=== PATIENT | female | born 1965 | race Caucasian/White ===

== ENCOUNTER 2024-11-01 12:06 | Inpatient (IN) | payer MEDICAID ==
[~2024-11-01] VITALS: Ht 165.1 cm; Wt 139.1 kg
[~2024-11-01 12:06] MED LIST: ALBU108A5 IN; AMLO1TAB23 PO; ASPI-394 PO; ATOR20TA PO; Atorvastatin Calcium PO; FENO134C16 PO; GEMF-66 PO; HYDR1CAP27 PO; IBUP-1456 PO; LEVO200T7 PO; LIDO1PAD55 EX; LOSA-533 PO; METH40TA2 PO; MUPI2CRE17 EX; SUMA100T15 PO; TRI05TP TOP
--- NOTE | 2024-11-01 12:17 | ECG ---
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
--- NOTE | 2024-11-01 12:20 | ED.PDOC ---
HPI Comments 59 y.o female presents to the ED via EMS for a chief complaint of hemoptysis x 2 days ago associated with chest pain, SOB, and chills x 1 day. Patient describes chest pain as sharp, radiates to her shoulder blades and back, and states there are no modifying factors. Patient denies any recent illness, contact illness exposure, nausea, vomiting, diarrhea, fever. Patient is currently being seen for a parasitic rash by infectious disease doctor localized to her left hand that r adiates to throughout her body. Patient has a PMH of HTN, HDL, DM, thyroid cancer, CAD, COPD, CHF, Angiogram. She reports the use of tobacco. Time Seen by MD: 17:05 Primary Care Provider: MIKE Reviewed Notes: Nurses Notes, Cattle Sorter Notes, Medications, Allergies Allergies: Coded Allergies: Shellfish Allergy (Verified Allergy, Mild, 05/24/15) Penicillins (Verified Allergy, Unknown, 05/23/15) Home Meds Active Scripts Atorvastatin Calcium (Lipitor) 20 Mg Tab, 1 TAB PO QHSP, #30 TAB 1 Refill Prov:MACIE SCHAEFER MD 05/26/15 Amlodipine Besylate (Amlodipine Besylate) 10 Mg Tab, 1 TAB PO DAILY, #30 TAB 5 Refills Prov:MACIE SCHAEFER MD 05/26/15 [Atorvastatin Calcium] 20 MG TB No Conflict Check, 20 MG PO HS, #30 TAB Prov:MACIE SCHAEFER MD 05/26/15 Aspirin (Aspir-Low Ec) 81 Mg Tb, 81 MG PO DAILY, #30 TAB Prov:MACIE SCHAEFER MD 05/26/15 Reported Medications Methadone Hcl (Methadose) 40 Mg Tab, 57 MG PO DAILY, TAB 05/23/15 Gemfibrozil (Gemfibrozil) 600 Mg Tab, 600 MG PO DAILY, TAB 05/23/15 Levothyroxine Sodium (Levothyroxine Sodium) 200 Mcg Tab, PO DAILY 12/27/12 Information Source: Patient, Emergency Med Personnel Mode of Arrival: EMS Severity: Moderate Timing: Days Duration: Since onset Location: Substernal Radiation: Shoulder (R), Shoulder (L) Onset: At Rest Cardiac Risk Factors: Smoker, Family History, Hyperlipidemia, HTN, Diabetes PE Risk Factors: None History of: Similar pain in past Modifying Factors: Nothing Associated Signs and Symptoms: SOB Past Medical History PAST MEDICAL HISTORY: Angina, CAD, Cancer, CHF, COPD, High Lipids, HTN, [place] Surgical History: Thyroidectomy, Tonsillectomy Surgical History (Other): retinal, bilateral knee replacement, angiogram Family History Family History: No family hx of Cancer, No family hx of DM, No family hx of Heart pranav Social History Smoker: Cigarettes Alcohol: Denies ETOH Use Drugs: Denies Drug Use Lives In: Home Constitutional: denies: chills, diaphoresis, fatigue, fever, malaise, sweats, weakness, others EENTM: denies: blurred vision, double vision, ear bleeding, ear discharge, ear drainage, ear pain, ear ringing, eye pain, eye redness, hearing loss, mouth pain, mouth swelling, nasal discharge, nose bleeding, nose congestion, nose pain, photophobia, tearing, throat pain, throat swelling, voice changes, others Respiratory: reports: hemoptysis, SOB at rest, shortness of breath, SOB with excertion; denies: cough, orthopnea, stridor, wheezing, others Cardiovascular: reports: chest pain; denies: dizzy spells, diaphoresis, Dyspnea on exertion, edema, irregular heart beat, left arm pain, lightheadedness, palpitations, PND, syncope, others Gastrointestinal: denies: abdomen distended, abdominal pain, blood streaked bowels, constipated, diarrhea, dysphagia, difficulty swallowing, hematemesis, melena, nausea, poor appetite, poor fluid intake, rectal bleeding, rectal pain, vomiting, others Genitourinary: denies: abnormal vagina bleeding, burning, dyspareunia, dysuria, flank pain, frequency, hematuria, incontinence, pain, , vagina discharge, urgency, others Neurological: denies: dizziness, fainting, headache, left sided numbness, left sided weakness, numbness, paresthesia, pre-existing deficit, right sided numbness, right sided weakness, seizure, speech problems, tingling, tremors, weakness, others Musculoskeletal: reports: back pain, others (shoulder blade pain bilaterally ); denies: gout, joint pain, joint swelling, muscle pain, muscle stiffness, neck pain Integumetry: denies: bruises, change in color, change in hair/nails, dryness, laceration, lesions, lumps, rash, wounds, others Allergic/Immunocompromised: denies: Difficulty Healing, Frequent Infections, Hives, Itching, others Hematologic/Lymphatic: denies: anemia, blood clots, easy bleeding, easy bruising, swollen glands, others Endocrine: denies: excessive hunger, excessive sweating, excessive thirst, excessive urination, flushing, intolerance to cold, intolerance to heat, unexplained weight gain, unexplained weight loss, others Psychiatric: denies: anxiety, bipolar disorder, depression, hopeless, panic disorder, schizophrenia, sleepless, suicidal, others All Other Systems: Reviewed and Negative Physical Exam General Appearance: Moderate Distress HEENT: Normal ENT Inspection, Pharynx Normal, TMs Normal Neck: Full Range of Motion, Non-Tender, Normal, Normal Inspection Respiratory: Chest Non-Tender, Lungs Clear, No Accessory Muscle Use, No Respiratory Distress, Normal Breath Sounds Cardiovascular: No Edema, No JVD, No Murmur, No Gallop, Normal Peripheral Pulses, Regular Rate/Rhythm Breast Exam: Deferred Gastrointestinal: No Organomegaly, Non Tender, No Pulsatile Mass, Normal Bowel Sounds, Soft Genitalia: Deferred Pelvic: Deferred Rectal: Deferred Extremities: No calf tenderness, Normal capillary refill, Normal inspection, Normal range of motion, Non-tender, No pedal edema Musculoskeletal : Apperance: Normal Neurologic: Alert, pack train driver II-XII nml as Tested, No Motor Deficits, Normal Affect, Normal Mood, No Sensory Deficits Cerebellar Function: Normal Reflexes: Normal Skin: Dry, Normal Color, Warm Lymphatic: No Adenopathy EKG EKG : Pulse Rate (adult): 71 Cardiac Rhythm: NSR Hypertrophy: LAE Was a procedure done? Was a procedure done?: No CP Differential Dx Differential Diagnosis: Anxiety / Panic Attack, Digoxin Toxicity Differential Diagnosis: Angina, Chest Wall Pain, Cholelithiasis, Costochondritis, Esophageal reflux/spasm, Gastritis, Myocardial Infarction, Pericarditis, Pneumonia, Pneumothorax, Pulmonary Embolus X-Ray, Labs, Meds, VS Vital Signs Date Time Temp Pulse Resp B/P (MAP) Pulse Ox O2 Delivery O2 Flow Rate FiO2 11/01/24 16:54 98.3 80 24 183/92 (122) 90 98.3 11/01/24 16:51 183/92 11/01/24 16:47 98.3 80 18 183/92 (122) 90 98.3 11/01/24 15:34 Room Air* 0 21 11/01/24 12:56 69 11/01/24 12:21 71 11/01/24 12:13 71 11/01/24 12:10 98.8 85 16 184/83 (116) 96 Lab Test 11/01/24 14:06 11/01/24 12:54 Range/Units Troponin I High Sensitivity 6 6 </=34 ng/L White Blood Count 14.4 H 4.4-10.8 10^3/uL Red Blood Count 4.60 4.0-5.20 10^6/uL Hemoglobin 14.2 12.2-16.2 g/dL Hematocrit 41.6 36.0-46.0 % Mean Corpuscular Volume 90.4 80.0-100.0 fL Mean Corpuscular Hemoglobin 30.8 28.0-32.0 pg Mean Corpuscular Hemoglobin Concent 34.1 32.0-36.0 g/dL Red Cell Distribution Width 15.7 H 11.8-14.3 % Platelet Count 225 140-450 10^3/uL Mean Platelet Volume 9.2 6.9-10.8 fL Neutrophils (%) (Auto) 87.8 H 37.0-80.0 % Lymphocytes (%) (Auto) 7.2 L 10.0-50.0 % Monocytes (%) (Auto) 4.1 0.0-12.0 % Eosinophils (%) (Auto) 0.6 0.0-7.0 % Basophils (%) (Auto) 0.3 0.0-2.0 % Neutrophils # (Auto) 12.6 H 1.6-8.6 10 ^3/uL Lymphocytes # (Auto) 1.0 0.4-5.4 10 ^3/uL Monocytes # (Auto) 0.6 0-1.3 10 ^3/uL Eosinophils # (Auto) 0.1 0-0.8 10 ^3/uL Basophils # (Auto) 0 0-0.2 10 ^3/uL Nucleated Red Blood Cells 0.2 % Sodium Level 138 136-145 mmol/L Potassium Level 3.4 L 3.5-5.1 mmol/L Chloride Level 99 98-107 mmol/L Carbon Dioxide Level 31 20-31 mmol/L Anion Gap 8 5-15 Blood Urea Nitrogen 11 9-23 mg/dL Creatinine 0.74 0.550-1.02 mg/dL Glomerular Filtration Rate Calc 93 >90 mL/min BUN/Creatinine Ratio 14.9 10.0-20.0 Serum Glucose 193 H 74-106 mg/dL Hemoglobin A1c 6.6 H <5.7 % A1C Calcium Level 9.6 8.7-10.4 mg/dL Total Bilirubin 0.4 0.2-1.0 mg/dL Aspartate Amino Transferase (AST) 21 13-40 U/L Alanine Aminotransferase (ALT) 16 7-40 U/L Alkaline Phosphatase 82 46-116 U/L Total Protein 7.0 5.7-8.2 g/dL Albumin 4.1 3.2-4.8 g/dL Thyroid Stimulating Hormone (TSH) 18.24 H 0.55-4.78 uIU/mL Current Medications Medications (Trade) Dose Ordered Sig/Heriberto Route Start Time Stop Time Status Last Admin Aspirin 162 mg ONCE ONCE PO 11/01/24 12:15 11/01/24 12:16 DC 11/01/24 16:39 Sodium Chloride 1,000 ml @ 500 mls/hr Q2H ONCE IVB 11/01/24 12:15 11/01/24 14:14 DC 11/01/24 15:57 Hydralazine HCl (Apresoline Injection) 10 mg Q6HP PRN IV 11/01/24 16:30 11/01/24 16:51 Diagnostic Test (Pha) (Accu-Chek Comfort Curve T) 1 strip ACHS 11/01/24 17:00 11/01/24 17:43 Insulin Human Regular (InsuLIN R) ACHS SC 11/01/24 17:00 11/01/24 17:45 Ondansetron HCl (Zofran) 4 mg Q4HP PRN IV 11/01/24 16:30 11/01/24 17:34 CHEST RADIOGRAPH IMPRESSION: 1. Right upper lung zone consolidation. Diffuse bilateral interstitial opacities. The patient was given hydralazine 10 mg IV push for the elevated blood pressure. The patient was also given aspirin 162 mg by mouth The patient's CBC shows an elevated white blood cell count of 14.4 The rest of the CBC is within normal limits The chemistry panel is within normal limits. The TSH is significantly elevated The troponin level x2 is negative The patient was being admitted at this time. The patient has had some persistent chest pain The patient was also given insulin Images Reviewed?: Images reviewed and evaluated by me Time of 1ST Reevaluation: 12:20 Reevaluation 1ST: Unchanged Patient Education/Counseling: Diagnosis, Treatment, Prognosis Family Education/Counseling: No Family Present Departure 1 Departure Time of Disposition: 17:51 Impression: Primary Impression: Acute coronary syndrome Additional Impressions: Hemoptysis Generalized weakness Disposition: 09 ADMITTED INPATIENT Admit to: Tele Condition: Fair Critical Care Note Critical Care Time?: Yes (45 min-critical care time only) Stability Stability form required: Yes Unstable for transfer: Telemetry monitoring (Telemetry monitoring required), ED Physician Assesment (Clinical assesment) Heart Score Heart Score: Heart Score Response (Comments) Value History Moderate Suspicious 1 EKG Repolarization Disturb 1 Age 45-64 1 Risk Factors >3 or Hx ASHD 2 Troponin Normal limit 0 Total 5 I personally scribed for TERESA CAGLE MD ([email or web address]) on 11/01/24 at 12:20. Electronically submitted by Jennifer Goldberg ([facility]). I personally scribed for TERESA CAGLE MD ([email or web address]) on 11/01/24 at 12:21. Electronically submitted by Jennifer Goldberg ([email or web address]). I personally scribed for TERESA CAGLE MD ([email or web address]) on 11/01/24 at 15:35. Electronically submitted by Jennifer Goldberg ([facility]). TERESA CAGLE MD Nov 01, 2024 12:20
--- NOTE | 2024-11-01 12:58 | ECG ---
[facility] Test Date: 2024-11-01 Test Time: 12:56:07 Pat Name: LUIS AYOUB Department: ER Room: [address] [place] [address] Gender: F Station Supervisor: RADHA : 1965 Requested By: TERESA CAGLE Order Number: [id number] Reading MD: Uday Ayers Measurements Intervals [place] Rate: 69 P: 65 NH: 142 QRS: -29 QRSD: 107 T: 196 QT: 493 QTc: 529 Interpretive Statements Sinus rhythm Borderline left axis deviation Abnormal R-wave progression, late transition Borderline repolarization abnormality Prolonged QT interval Electronically Signed On 11-05-2024 10:18:35 PST by Uday Ayers Please click the below link to view image of tracing.
--- NOTE | 2024-11-01 13:26 | DVH ---
CHEST RADIOGRAPH Indication: cp Technique: Single frontal view of the chest was obtained Comparison: None FINDINGS: Lines and Tubes: None Lungs: Upper lung zone consolidation. Diffuse bilateral interstitial opacities. Pleura: No effusion. No pneumothorax. Cardiomediastinal contours: Unremarkable Bones: No acute osseous abnormality. IMPRESSION: 1. Right upper lung zone consolidation. Diffuse bilateral interstitial opacities. HS:Y
[2024-11-01 13:30] LABS: Basophils # (auto) 0 10 ^3/uL (0-0.2); Basophils % (auto) 0.3 % (0.0-2.0); Eosinophils # (auto) 0.1 10 ^3/uL (0-0.8); Eosinophils % (auto) 0.6 % (0.0-7.0); Hematocrit 41.6 % (36.0-46.0); Hemoglobin 14.2 g/dL (12.2-16.2); Lymphocytes % (auto) 7.2 % (10.0-50.0); Mean Corpuscular Hemoglobin 30.8 pg (28.0-32.0); Mean Corpuscular Hgb Conc. 34.1 g/dL (32.0-36.0); Mean Corpuscular Volume 90.4 fL (80.0-100.0); Monocytes # (auto) 0.6 10 ^3/uL (0-1.3); Monocytes % (auto) 4.1 % (0.0-12.0); Neutrophils # (auto) 12.6 10 ^3/uL (1.6-8.6); Neutrophils % (auto) 87.8 % (37.0-80.0); Nucleated Red Blood Cells % 0.2 %; Platelet Count (auto) 225 10^3/uL (140-450); Red Cell Distribution Width 15.7 % (11.8-14.3); White Blood Cell 14.4 10^3/uL (4.4-10.8)
[2024-11-01 13:45] LABS: Alanine Aminotransferase 16 U/L (7-40); Albumin 4.1 g/dL (3.2-4.8); Alkaline Phosphatase 82 U/L (46-116); Anion Gap 8 (5-15); Aspartate Aminotransferase 21 U/L (13-40); BUN/Creatinine Ratio 14.9 (10.0-20.0); Bilirubin, Total 0.4 mg/dL (0.2-1.0); Blood Urea Nitrogen 11 mg/dL (9-23); Calcium 9.6 mg/dL (8.7-10.4); Chloride 99 mmol/L (98-107); Sodium 138 mmol/L (136-145)
[2024-11-01 13:51] LABS: Carbon Dioxide 31 mmol/L (20-31); Glucose 193 mg/dL (74-106); Potassium 3.4 mmol/L (3.5-5.1)
[2024-11-01] MEDS: SODIUM CHLORIDE 0.9% 1,000 ML IVB ONE (15:57)
[2024-11-01] MEDS: SODIUM CHLORIDE 0.9% 1,000 ML IV SCH (16:30)
[2024-11-01] MEDS ORDERED: DEXTROSE (50%) 50ML SYRG IV PRN (16:30)
[2024-11-01] MEDS ORDERED: AZITHROMYCIN 500MG/ 250ML 250 ML IV ONE (16:30)
[2024-11-01] MEDS ORDERED: MORPHINE SULFATE INJ 2 MG/ml SYRG IV PRN ×2 (16:30→17:15)
[2024-11-01] MEDS ORDERED: ACETAMINOPHEN 325 MG TAB PO PRN (16:30)
[2024-11-01] MEDS: ASPirin 81 mg TAB PO ONE (16:39)
[2024-11-01] MEDS: hydrALAZINE HCL 20 MG/ML VL IV PRN (16:51)
[2024-11-01 16:54] VITALS: BP 183/92; PULSE 80; RESP 24; TEMP 98.3; O2SAT 90
--- NOTE | 2024-11-01 17:14 | DVHHP2 ---
History of Present Illness Reason for Visit: Acute chest pain History of Present Illness Patient is a 59-year-old female morbidly obese with multiple past medical history including diabetes mellitus, hyperlipidemia, COPD, [place], and Coronary artery disease who presented to [facility] ED with complaint of ch est pain. Patient reports symptoms progressively get worse with shortness of breaths, chills, described pain as sharp in nature, radiates to her shoulder, back, rating pain 7/10 numeric scale, getting worse that prompted this visit. Patient is currently being seen for a parasitic rash by infectious disease doctor localized to her left hand that radiates to throughout her body. Patient was seen and evaluated in the ED, laboratory data shows WBC 14.4, platelets 225, sodium 138, potassium 3.4, BUN 11, creatinine 0.74, GFR 93, glucose 193, blood pressure 184/83, heart rate 72, temperature 98.8 F, O2 saturation 96% on room air. Chest x-ray revealing right upper lung zone consolidation, diffuse bilateral interstitial opacities. Patient was started on IV antibiotic regimen doxycycline, please see medication orders section in the computer. On my assessment, patient denies chest pain at this moment, no headache, no dizziness, no diaphoresis, no nausea, no vomiting, no fever, no chills. Patient was admitted for further evaluation and medical management. Past Medical History Angina, CAD, Cancer, DM, CHF, COPD, High Lipids, HTN, [place] Past Surgical History Thyroidectomy, Tonsillectomy, Retinal, bilateral knee replacement, angiogram Family History Reviewed, noncontributory to the management of this case. Past Social History Patient lives at home, smokes cigarettes, denies alcohol or illicit drugs abuse. Review of Systems Constitutional: No: Fever, Chills, Sweats, Weakness, Malaise, Other Eyes: No: Pain, Vision change, Conjunctivae inflammation, Eyelid inflammation, Other, Redness ENT: No: Ear pain, Ear discharge, Nose pain, Nose discharge, Nose congestion, Mouth pain, Mouth swelling, Throat pain, Throat swelling, Other Respiratory: Shortness of breath, SOB with excertion, Hemoptysis, Other (SOB at rest); No: Cough, Dry, Wheezing, Pleuritic Pain, Sputum, Wheezing Cardiovascular: Chest Pain; No: Palpitations, Orthopnea, Paroxysmal Noc. Dyspnea, Edema, Lt Headedness, Other Gastrointestinal: No: Nausea, Vomiting, Abdominal Pain, Diarrhea, Constipation, Melena, Hematochezia, Other Genitourinary: No Dysuria, No Frequency, No Incontinence, No Hematuria, No Retention, No Other Musculoskeletal: other (shoulder blade pain bilaterally ), back pain; No: neck pain, shoulder pain, arm pain, hand pain, leg pain, foot pain Skin: Rash (Parasitic); No: Lesions, Jaundice, Bruising, Other Neurological: No: Weakness, Numbness, Incoordination, Change in speech, Confusion, Seizures, Other Allergies: Coded Allergies: Shellfish Allergy (Verified Allergy, Mild, 05/24/15) Penicillins (Verified Allergy, Unknown, 05/23/15) Medications Current Medications Medications Dose Ordered Sig/Heriberto Route Start Time Stop Time Status Last Admin Dose Admin Levothyroxine Sodium 150 mcg QAM@0600 PO 11/02/24 06:00 Aspirin 81 mg DAILY PO 11/02/24 10:00 Atorvastatin Calcium 20 mg HS PO 11/01/24 22:00 Hydralazine HCl 10 mg Q6HP PRN IV 11/01/24 16:30 11/01/24 16:51 10 MG Amlodipine Besylate 5 mg DAILY PO 11/02/24 10:00 Gemfibrozil 600 mg DAILY PO 11/02/24 10:00 Azithromycin 250 ml @ 125 mls/hr DAILY IV 11/02/24 10:00 Future Hold Diagnostic Test (Pha) 1 strip ACHS 11/01/24 17:00 Insulin Human Regular ACHS SC 11/01/24 17:00 Dextrose 50 ml UD PRN IV 11/01/24 16:30 Sodium Chloride 1,000 ml @ 60 mls/hr [id number] IV 11/01/24 16:30 Acetaminophen/ Hydrocodone Bitart 1 tab Q4HP PRN PO 11/01/24 16:30 Ondansetron HCl 4 mg Q4HP PRN IV 11/01/24 16:30 Docusate Sodium 100 mg BIDPRN PRN PO 11/01/24 16:30 Acetaminophen 650 mg Q6HP PRN PO 11/01/24 16:30 Morphine Sulfate 2 mg Q4HPRN PRN IV 11/01/24 16:30 Exam Vital Signs Vital Signs Date Time Temp Pulse Resp B/P (MAP) Pulse Ox O2 Delivery O2 Flow Rate FiO2 11/01/24 16:54 98.3 80 24 183/92 (122) 90 98.3 11/01/24 15:34 Room Air* 0 21 General Appearance: Alert, Oriented X3, Cooperative, No acute distress HEENT: Atraumatic, PERRLA, EOMI, Mucous membr. moist/pink Respiratory: Normal air movement, Other (Diminished breath sounds) Cardiovascular: Regular rate, Normal S1, Normal S2 Abdominal: Normal bowel sounds, Soft, No tenderness, No hepatospenomegaly, No masses Extremities: No clubbing, No cyanosis, No edema, Normal pulses, No tenderness/swelling Skin: No breakdown, No significant lesion Neuro: Normal speech, Normal tone, Sensation intact, Cranial nerves 3-12 NL, Reflexes 2+, Other (Generalized weakness) Psych/Mental Status: Mental status NL, Mood NL Labs/Xrays Labs Test 11/01/24 14:06 11/01/24 12:54 Range/Units Troponin I High Sensitivity 6 </=34 ng/L White Blood Count 14.4 H 4.4-10.8 10^3/uL Red Blood Count 4.60 4.0-5.20 10^6/uL Hemoglobin 14.2 12.2-16.2 g/dL Hematocrit 41.6 36.0-46.0 % Mean Corpuscular Volume 90.4 80.0-100.0 fL Mean Corpuscular Hemoglobin 30.8 28.0-32.0 pg Mean Corpuscular Hemoglobin Concent 34.1 32.0-36.0 g/dL Red Cell Distribution Width 15.7 H 11.8-14.3 % Platelet Count 225 140-450 10^3/uL Mean Platelet Volume 9.2 6.9-10.8 fL Neutrophils (%) (Auto) 87.8 H 37.0-80.0 % Lymphocytes (%) (Auto) 7.2 L 10.0-50.0 % Monocytes (%) (Auto) 4.1 0.0-12.0 % Eosinophils (%) (Auto) 0.6 0.0-7.0 % Basophils (%) (Auto) 0.3 0.0-2.0 % Neutrophils # (Auto) 12.6 H 1.6-8.6 10 ^3/uL Lymphocytes # (Auto) 1.0 0.4-5.4 10 ^3/uL Monocytes # (Auto) 0.6 0-1.3 10 ^3/uL Eosinophils # (Auto) 0.1 0-0.8 10 ^3/uL Basophils # (Auto) 0 0-0.2 10 ^3/uL Nucleated Red Blood Cells 0.2 % Sodium Level 138 136-145 mmol/L Potassium Level 3.4 L 3.5-5.1 mmol/L Chloride Level 99 98-107 mmol/L Carbon Dioxide Level 31 20-31 mmol/L Anion Gap 8 5-15 Blood Urea Nitrogen 11 9-23 mg/dL Creatinine 0.74 0.550-1.02 mg/dL Glomerular Filtration Rate Calc 93 >90 mL/min BUN/Creatinine Ratio 14.9 10.0-20.0 Serum Glucose 193 H 74-106 mg/dL Hemoglobin A1c 6.6 H <5.7 % A1C Calcium Level 9.6 8.7-10.4 mg/dL Total Bilirubin 0.4 0.2-1.0 mg/dL Aspartate Amino Transferase (AST) 21 13-40 U/L Alanine Aminotransferase (ALT) 16 7-40 U/L Alkaline Phosphatase 82 46-116 U/L Total Protein 7.0 5.7-8.2 g/dL Albumin 4.1 3.2-4.8 g/dL Thyroid Stimulating Hormone (TSH) 18.24 H 0.55-4.78 uIU/mL PATIENT: LUIS AYOUB ACCT: [id number] UNIT: [id number] : 1965 LOC: ER ROOM / BED: / AGE / SEX: 59 / F ADM STATUS: REG ER SERVICE 1212 ORDERING PHYSICIAN: TERESA CAGLE MD PROCEDURE(s): CXRP - CHEST PORTABLE REASON: cp ORDER NUMBER(s): [id number], ACCESSION NUMBER(s): [id number] CHEST RADIOGRAPH Indication: cp Technique: Single frontal view of the chest was obtained Comparison: None FINDINGS: Lines and Tubes: None Lungs: Upper lung zone consolidation. Diffuse bilateral interstitial opacities. Pleura: No effusion. No pneumothorax. Cardiomediastinal contours: Unremarkable Bones: No acute osseous abnormality. IMPRESSION: 1. Right upper lung zone consolidation. Diffuse bilateral interstitial opacities. Assessment/Plan Assessment/Plan Acute chest pain Hypokalemia Prolonged QT syndrome Pneumonia, unspecified organism Leukocytosis, unspecified Generalized weakness Diabetes mellitus with hyperglycemia Plan 1. Admit to telemetry unit 2. Breathing treatment 3. Pain control management 4. IV antibiotic management 5. Management of fluids and electrolytes 6. Consultation for hospitalist 7. Diagnostic test chest x-ray 8. DVT prophylaxis-on aspirin 9. Repeat labs CBC, CMP in a.m. 10. Home medication reviewed and reconciled 11. Continue with current medical management 12. Treatment plan discussed with patient and RN. Patient verbalized understanding. Plan discussed with: Patient, Other (RN) My Orders Orders - SAHIL MALONE DNP Procedure Category Date Status Time Levothyroxine Tablet PHA 11/02/24 In Process (Synthroid Tablet) 06:00 Aspirin Tablet PHA 11/02/24 In Process 10:00 Atorvastatin (Lipitor) PHA 11/01/24 In Process 22:00 Hydralazine Injection PHA 11/01/24 In Process (Apresoline Inject 16:30 Amlodipine Tablet PHA 11/02/24 In Process (Norvasc Tablet) 10:00 Consistent DIET 11/01/24 Transmitted Carb(Ccho)Diabetes Dinner Gemfibrozil Tablet PHA 11/02/24 In Process (Lopid Tablet) 10:00 Azithromycin 500mg/ PHA 11/02/24 In Process 250ml (Zithromax 50 10:00 Azithromycin 500mg/ PHA 11/01/24 In Process 250ml (Zithromax 50 16:30 Glucose Blood PHA 11/01/24 In Process (Accu-Chek Comfort 17:00 Insulin R (Human) PHA 11/01/24 In Process (Insulin R) 17:00 Dextrose 50% Syringe PHA 11/01/24 In Process 16:30 Allergies CHERYL 11/01/24 In Process 16:18 Code Status CODE 11/01/24 Transmitted 16:18 Sodium Chloride 0.9% PHA 11/01/24 In Process 16:30 Oxygen Per Hour RT 11/01/24 Transmitted 16:18 Hydrocodone-Acet PHA 11/01/24 In Process 5/325mg Tab ([place] 16:30 Ondansetron Hcl PHA 11/01/24 In Process (Zofran) 16:30 Docusate Sodium PHA 11/01/24 In Process Capsule (Colace 16:30 Complete Blood Count LAB 11/02/24 Verified 04:00 Comprehensive LAB 11/02/24 Verified Metabolic Panel 04:00 Condition: Serious [facility] 11/01/24 In Process 16:18 Acetaminophen Tablet [facility] 11/01/24 In Process (Tylenol Tablet) 16:30 Bedrest With Bathroom [facility] 11/01/24 In Process Privileg 16:18 Morphine Sulfate [facility] 11/01/24 In Process Injection 16:[address] [facility] 11/01/24 In Process Compression Device Potassium Er Tablet [facility] 11/01/24 Logged (Klor-Con Tablet) 17:15 Problem List: (1) Acute chest pain (2) Leukocytosis, unspecified (3) Prolonged QT syndrome (4) Diabetes mellitus with hyperglycemia (5) Hypokalemia (6) Generalized weakness (7) Pneumonia, unspecified organism Date of Service: Nov 01, 2024 Billing Provider: SAHIL MALONE DNP Common Visit Codes: [id number] INP/OBS CARE (HIGH) SAHIL MALONE DNP Nov 01, 2024 17:14
[2024-11-01] MEDS ORDERED: NITROGLYCERIN 0.4 MG SL TAB SL PRN (17:15)
[2024-11-01] MEDS: ONDANSETRON HCL 4 MG/2 ML VIAL IV PRN (17:34)
[2024-11-01] MEDS: ACCU-CHEK COMFORT CURVE STRIP VI SCH (17:43)
[2024-11-01] MEDS: InsuLIN REG 1unit/0.01ml Soln (100units/ml) SC SCH (17:45)
[2024-11-01] MEDS: POTASSIUM CHL 20 Meq TABLET PO ONE (18:08)
[2024-11-01] MEDS: DOXYCYCLINE 100MG/250ML 250 ML IV SCH (18:08)
[2024-11-01] MEDS: HYDROcodone-ACET 5/325MG TAB PO PRN (21:43)
[2024-11-01] MEDS: ATORVASTATIN 20 MG TAB PO SCH (21:43)
[2024-11-01 22:30] VITALS: BP 119/54; PULSE 74; RESP 20; TEMP 98.8; O2SAT 93
[2024-11-01 23:11] VITALS: BP 156/83; PULSE 78; RESP 18; TEMP 98.4; O2SAT 92
[2024-11-01 23:53] LABS: COVID19 ANTIGEN SOFIA FIA NEGATIVE (NEGATIVE)
[2024-11-02] VITALS (17 sets, daily range): BP systolic 141–173; BP diastolic 58–84; PULSE 66–86; RESP 14–28; TEMP 97.7–99.1; O2SAT 92–98
[2024-11-02] MEDS ORDERED: METF-370 PO (00:04)
[2024-11-02] MEDS ORDERED: ATOR20TA PO (00:04)
[2024-11-02] MEDS ORDERED: METH-1214 PO (00:04)
[2024-11-02] MEDS ORDERED: BRIM0.2S2 OP (00:04)
[2024-11-02] MEDS ORDERED: FURO40TA4 PO (00:04)
[2024-11-02] MEDS ORDERED: OMEP20TA PO (00:04)
[2024-11-02] MEDS ORDERED: FENO1CAP4 PO (00:04)
[2024-11-02] MEDS ORDERED: HYDR-3682 PO (00:04)
[2024-11-02] MEDS ORDERED: SERT-206 PO (00:04)
[2024-11-02] MEDS ORDERED: LEVO50TA7 PO (00:04)
[2024-11-02] MEDS ORDERED: AMLO1TAB22 PO (00:04)
[2024-11-02] MEDS: ALBUTEROL SULF 2.5 MG/0.5ML(0.5%) NEB SOLN NEB PRN (00:29)
[2024-11-02] MEDS: IBUPROFEN 600 MG TAB PO ONE (00:43)
[2024-11-02 01:00] LABS: Urine Bacteria None Seen /hpf (None Seen)
[2024-11-02 01:15] LABS: Urine Blood Negative /uL (Negative); Urine Clarity Clear (Clear); Urine Color Light-Yellow (Yellow); Urine Protein, UAD Negative (Negative); Urine Specific Gravity 1.015 (1.001-1.035); Urine Urobilinogen Normal (Negative); Urine WBC 5 /hpf (0 - 5); Urine pH 7.5 (5.0-9.0)
[2024-11-02] MEDS: LEVOTHYROXINE SODIUM 50 MCG TAB PO SCH (05:52)
[2024-11-02] MEDS: cefTRIAXone 1GM/50ML D5W 50 ML IV ONE (08:30)
[2024-11-02] MEDS: FAMOTIDINE (10MG/ML) 2ML VL IV ONE (08:30)
[2024-11-02] MEDS: GEMFIBROZIL 600 MG TAB PO SCH (09:22)
[2024-11-02] MEDS: ASPirin 81 mg TAB PO SCH (09:22)
[2024-11-02] MEDS: FAMOTIDINE (10MG/ML) 2ML VL IV SCH (09:23)
[2024-11-02] MEDS: amLODIPine BESYLATE 5 MG TAB PO SCH (09:23)
[2024-11-02] MEDS: cefTRIAXone 1GM/50ML D5W 50 ML IV SCH (09:23)
[2024-11-02] MEDS ORDERED: AZITHROMYCIN 500MG/ 250ML 250 ML IV SCH (10:00)
[2024-11-02] MEDS: METHADONE HCL 10 MG TAB PO SCH (10:54)
[2024-11-02] MEDS: SERTRALINE HCL 50 MG TAB PO SCH (10:54)
[2024-11-02] MEDS ORDERED: ACETAMINOPHEN 325 MG TAB PO PRN (12:00)
[2024-11-02 12:31] LABS: Alanine Aminotransferase 15 U/L (7-40); Alkaline Phosphatase 85 U/L (46-116); Blood Alcohol 4.7 mg/dL (<10); Calcium 8.9 mg/dL (8.7-10.4); Carbon Dioxide 29 mmol/L (20-31); Chloride 98 mmol/L (98-107)
[2024-11-02 12:32] LABS: Albumin 3.9 g/dL (3.2-4.8); Anion Gap 10 (5-15); Aspartate Aminotransferase 15 U/L (13-40); BUN/Creatinine Ratio 12.3 (10.0-20.0); Bilirubin, Total 0.5 mg/dL (0.2-1.0); Phosphorus 2.7 mg/dL (2.4-5.1); Sodium 137 mmol/L (136-145); Total Protein 6.2 g/dL (5.7-8.2)
[2024-11-02 12:36] LABS: Hematocrit 37.3 % (36.0-46.0); Hemoglobin 12.5 g/dL (12.2-16.2); Mean Corpuscular Hemoglobin 30.6 pg (28.0-32.0); Mean Corpuscular Hgb Conc. 33.6 g/dL (32.0-36.0); Mean Corpuscular Volume 91.1 fL (80.0-100.0); Platelet Count (auto) 223 10^3/uL (140-450); Red Blood Cells 4.09 10^6/uL (4.0-5.20); Red Cell Distribution Width 15.9 % (11.8-14.3); White Blood Cell 21.6 10^3/uL (4.4-10.8)
[2024-11-02 12:46] LABS: Blood Urea Nitrogen 8 mg/dL (9-23); Glucose 221 mg/dL (74-106); Magnesium 1.4 mg/dL (1.6-2.6); Potassium 3.4 mmol/L (3.5-5.1)
[2024-11-02 12:48] LABS: Basophils % (manual) 0 (0.0-2.0); Blast Cells 0; Eosinophils % (manual) 0 (0-7); Free T3 1.41 pg/mL (2.3-4.2); Metamyelocytes % 0; Myelocytes % 0; Promyelocytes % 0; Reactive Lymphocytes 0
[2024-11-02 12:49] LABS: Free T4 (Free Thyroxine) 0.73 ng/dL (0.89-1.76)
--- NOTE | 2024-11-02 13:05 | DVH ---
Bilateral lower extremity venous duplex Clinical History: DVT Comparison: None Technique: Duplex Doppler evaluation of the deep venous systems of both lower extremities from the common femora l veins to the popliteal veins including color Doppler and spectral/pulsed waveform analysis was perf ormed. Findings: RIGHT SIDE: The common femoral vein demonstrates appropriate compressibility and waveform variability. There is compressibility/patency of the great saphenous vein at the proximal thigh. The femoral vein demonstrates appropriate compressibility and waveform variability. The deep femoral vein demonstrates appropriate compressibility and waveform variability. The popliteal vein demonstrates appropriate compressibility and waveform variability. There is normal compressibility at the tibioperoneal trunk. LEFT SIDE: The common femoral vein demonstrates appropriate compressibility and waveform variability. There is compressibility/patency of the great saphenous vein at the proximal thigh. The femoral vein demonstrates appropriate compressibility and waveform variability. The deep femoral vein demonstrates appropriate compressibility and waveform variability. The popliteal vein demonstrates appropriate compressibility and waveform variability. There is normal compressibility at the tibioperoneal trunk. Impression: 1. No right or left femoropopliteal venous thrombosis. HS:Y
[2024-11-02 14:13] LABS: Band Neutrophils % (manual) 7; Lymphocytes % (manual) 4 (10.0-50.0); Monocytes % (manual) 6 (0-12); Platelet Estimate Adequate
--- NOTE | 2024-11-02 17:49 | DVHPNRES ---
Progress Note Date Seen: Nov 02, 2024 Resident Creating Document: VAUGHN VIRAMONTES RESIDENT Medical Necessity Reason Pt with a Central, PICC or Fol: Yes The following are medically ne: PICC Line Subjective Review of Systems Patient is 59 years old female with past medical history of coronary artery disease, hypertension, diabetes mellitus type 2, COPD, congestive heart failure, hyperlipidemia, morbid obesity came with a complaint of chest pain and shortness of breaths. As per patient patient started having chest pain 3 days before on Friday, sudden onset, central, radiating to the back and to the left arm, sharp in nature, 10/10, aggravated with movement, no relieving factor. Patient also endorsed some cough with blood noticed on Friday. Patient's chest pain was associated with some shortness of breath, patient also endorsed orthopnea and paroxysmal nocturnal dyspnea. Endorsed further inquiry patient also reported nausea but no vomiting. Patient also endorsed having 1 episode of diarrhea on Friday dark colored stool. On further inquiry patient reported that his legs swelling has been there for 1 year but is getting worse for last couple of days. Patient denied any fever, constipation, acute joint redness, dysarthria or change in vision. Initial lab workup revealed elevated blood pressure with 184/83, tachypnea with respiration rate 24. Initial lab workup revealed leukocytosis with WBC 14.4, D-dimer 0.83, HGB A1c 6.6, negative for troponin I, BNP 132.87, TSH elevated 18.24, serum alcohol 4.7, negative for COVID-19.. Urinalysis revealed leukocyte esterase trace, RBC 1, WBC 5, bacteria none. CXR revealed-Right upper lung zone consolidation. Diffuse bilateral interstitial opacities. Doppler study of the lower extremity negative for DVT. PMH- coronary artery disease, hypertension, diabetes mellitus type 2, COPD, congestive heart failure, hyperlipidemia, morbid obesity PSH- thyroidectomy, tonsillectomy, retinal surgery, bilateral knee replacement, history of coronary angiogram Allergy- penicillin, shellfish allergy Personal History/ Social History- patient denies smoking/alcoholism/drug abuse, lives with daughter Patient was seen today at the bedside. Cardiovascular- denes palpitation Respiratory- denies wheezing Gastrointestinal- denies any rectal bleeding, nausea or vomiting Musculoskeletal-denies acute joint swelling or tenderness or redness Neurological- denies acute dysarthria, dysphagia, change in vision Psychiatry- denies depression or SI or HI Patient was seen today for clinical evaluation. Labs and chart reviewed. Patient is on antibiotic ceftriaxone and doxycycline, tolerating well, no side effect noted. Pending CT angiogram to rule out pulmonary embolism. Objective vital signs Vital Sign Date Time Temp Pulse Resp B/P (MAP) Pulse Ox O2 Delivery O2 Flow Rate FiO2 11/02/24 16:32 98.1 76 18 152/58 (89) 95 98.1 11/02/24 10:00 Nasal Cannula* 2 28 Total Intake and Output 11/01/24 11/01/24 11/02/24 15:00 23:00 07:00 Intake Total 500 ml 275 ml Balance 500 ml 275 ml medications Current Medications Medications Dose Ordered Sig/Heriberto Route Start Time Stop Time Status Last Admin Dose Admin Levothyroxine Sodium 150 mcg QAM@0600 PO 11/02/24 06:00 11/02/24 05:52 150 MCG Aspirin 81 mg DAILY PO 11/02/24 10:00 11/02/24 09:22 81 MG Atorvastatin Calcium 20 mg HS PO 11/01/24 22:00 11/01/24 21:43 20 MG Hydralazine HCl 10 mg Q6HP PRN IV 11/01/24 16:30 11/02/24 04:24 10 MG Amlodipine Besylate 5 mg DAILY PO 11/02/24 10:00 11/02/24 09:23 5 MG Gemfibrozil 600 mg DAILY PO 11/02/24 10:00 11/02/24 09:22 600 MG Diagnostic Test (Pha) 1 strip ACHS 11/01/24 17:00 11/02/24 17:17 1 STRIP Insulin Human Regular ACHS SC 11/01/24 17:00 11/02/24 17:17 4 UNITS Dextrose 50 ml UD PRN IV 11/01/24 16:30 Acetaminophen/ Hydrocodone Bitart 1 tab Q4HP PRN PO 11/01/24 16:30 11/01/24 21:43 1 TAB Ondansetron HCl 4 mg Q4HP PRN IV 11/01/24 16:30 11/02/24 09:54 4 MG Docusate Sodium 100 mg BIDPRN PRN PO 11/01/24 16:30 Morphine Sulfate 2 mg Q4HPRN PRN IV 11/01/24 16:30 Nitroglycerin 0.4 mg Q5MINP PRN SL 11/01/24 17:15 Morphine Sulfate 2 mg Q30M PRN IV 11/01/24 17:15 Doxycycline Hyclate 250 ml @ 125 mls/hr Q12H IV 11/01/24 17:45 11/02/24 17:13 125 MLS/HR Albuterol 2.5 mg Q6HPRN PRN NEB 11/02/24 00:15 11/02/24 07:09 2.5 MG Ceftriaxone Sodium 50 ml @ 100 mls/hr DAILY@09 IV 11/02/24 09:00 11/02/24 09:23 100 MLS/HR Insulin Glargine 15 units QAM SC 11/03/24 07:00 Famotidine 20 mg Q12HR IV 11/02/24 10:00 11/02/24 09:23 20 MG Methadone HCl 55 mg DAILY PO 11/02/24 10:00 11/02/24 10:54 55 MG Sertraline HCl 50 mg DAILY PO 11/02/24 10:00 11/02/24 10:54 50 MG Acetaminophen 650 mg Q6HP PRN PO 11/02/24 12:00 Examination General examination- awake, alert, oriented, 1% HEENT- PEERLA, no acute nasal discharge Cardiovascular- S1-S2 audible, rate and rhythm regular, no murmur Respiratory- CTAB, no wheeze or rhonchi Gastrointestinal-nontender, bowel sound+. Nondistended Musculoskeletal-no acute joint swelling or tenderness or redness# Lower extremity- bilateral leg edema++ Neurological- cranial nerves intact, no acute dysarthria or dysphagia Psychiatry- denies depression or SI or HI laboratory and microbiology Laboratory Tests 11/02/24 11:50 Test 11/02/24 11:50 Range/Units Serum Glucose 221 H 74-106 mg/dL Problem List/Assessment/Plan Problem List/Assessment/Plan #Acute hypoxic respiratory failure likely due to pneumonia, rule out pulmonary embolism # pneumonia Gram-positive versus Gram-negative # acute exacerbation of COPD likely due to pneumonia # rule out pulmonary embolism # diabetes mellitus type # congestive heart failure, no acute exacerbation # hypertension # hyperlipidemia # CAD # hypothyroidism # morbid obesity #Leukocytosis Continue ceftriaxone 1 g IV daily Continue doxycycline 100 mg IV b.i.d. Continue amlodipine 5 mg p.o. daily Continue levothyroxine as prescribed Continue sertraline for 50 mg p.o. daily Continue atorvastatin 20 mg q.h.s. Continue famotidine 20 mg IV b.i.d. Continue aspirin 81 mg p.o. daily Continue other p.r.n. medications Pending CT angio chest Goals of care/advance care planning; FULL CODE; discussed with the patient >15 minutes PUD prophylaxis: Famotidine DVT prophylaxis: Lovenox Plan discussed with Dr. Hemphill, nursing staff, patient Total time spent on patient evaluation, chart review, assessment and plan, discussion discussion >30 minutes Plan discussed with: Patient Plan discussed with: Patient, Other (RN) My Orders My Orders Orders - VAUGHN VIRAMONTES Procedure Category Date Status Time Drug Screen LAB 11/02/24 Logged 08:19 Ceftriaxone 1gm/50ml PHA 11/02/24 In Process D5w (Rocephin) 09:00 Insulin Lantus PHA 11/03/24 In Process (Glargine) (Lantus) 07:00 Famotidine Injection PHA 11/02/24 In Process (Pepcid Injection) 10:00 Methadone Hcl Tablet PHA 11/02/24 In Process (Methadone Hcl Tabl 10:00 Sertraline Hcl PHA 11/02/24 In Process (Zoloft) 10:00 Respiratory Culture ELIZABETH 11/02/24 Logged W/ Gs 11:[address] 11/02/24 Logged Contrast 11:47 Bilat Lower Dvt US 11/02/24 Resulted 11:47 Acetaminophen Tablet PHA 11/02/24 In Process (Tylenol Tablet) 12:00 Npo (Nothing By DIET 11/02/24 Transmitted Mouth) Diet Lunch Date of Service: Nov 02, 2024 Billing Provider: GINO HEMPHILL MD Common Visit Codes: [id number] INP/OBS CARE(HIGH) Secondary Visit Codes: [id number] CARE PLAN 30 MINUTES VAUGHN VIRAMONTES Nov 02, 2024 17:49 GINO HEMPHILL MD Nov 02, 2024 19:18
[2024-11-02] MEDS: ENOXAPARIN SOD 40 MG/0.4 ML SYRINGE SC ONE (18:52)
[2024-11-02] MEDS: MAGNESIUM SULFATE 1GM/100ML 100 ML IV ONE (18:52)
--- NOTE | 2024-11-02 19:33 | DVH ---
CT ANGIOGRAM CHEST WITH CONTRAST FOR PULMONARY EMBOLUS CLINICAL HISTORY: SOB, HEMOPTYSIS TECHNIQUE: Helical axial scans of the chest during dynamic intravenous contrast injection. Pulmonary embolism protocol. Multiplanar reformats. Postprocessing MIP images. One or more of the following rad iation dose reduction techniques were used for this examination: automated exposure control, adjustme nt of the mA and/or kV according to patient size, use of iterative reconstruction technique. COMPARISON: Chest x-ray 11/01/2024 FINDINGS: Pulmonary arteries: There is adequate enhancement of the pulmonary arterial system to the proximal se gmental level, however, respiratory motion artifact somewhat limits evaluation. As visualized no defi nite pulmonary arterial filling defects are evident. Main pulmonary artery measures approximately 4.2 cm in diameter. Left and right pulmonary arteries measure approximately 3.1 cm in diameter. This may be sequelae of pulmonary arterial hypertension. Mediastinum: Heart is mildly enlarged. Coronary artery calcifications. No mediastinal adenopathy. No sizable pericardial effusion. Lung parenchyma: Large area of dense consolidation in the right upper lobe. Atelectasis/ scarring in the lung bases. Pleura: No sizable pleural effusion or pneumothorax. Chest wall and axillae: No appreciable axillary adenopathy. Upper abdomen: No acute findings as visualized. IMPRESSION: No definite evidence of pulmonary embolism. Large consolidation in the right upper lobe may be of infectious etiology. Recommend close follow-up to resolution to exclude any underlying lesion. Enlarged central pulmonary arteries which may be sequelae of pulmonary arterial hypertension.
[2024-11-03] VITALS (16 sets, daily range): BP systolic 132–162; BP diastolic 64–78; PULSE 55–85; RESP 16–24; TEMP 97.4–98.1; O2SAT 60–96
[2024-11-03] MEDS: INSULIN LANTUS (GLARGINE) 1 /0.01ml (100units/ml) SC SCH (05:43)
--- NOTE | 2024-11-03 08:02 | DVH ---
INDICATION: ABDOMINAL PAIN TECHNIQUE: Multiple real-time sonographic images of the abdomen were obtained. COMPARISON: None FINDINGS: The liver is increased in echogenicity. The liver measures 25.3 cm. No intrahepatic biliar y ductal dilatation is noted. The gallbladder wall measures 0.3 cm and is unremarkable. No gallstones or sludge is seen. The com mon duct measures 1.3 cm and is dilated. No filling defects. No pericholecystic fluid is noted. Nega tive sonographic benitez's sign. The right kidney measures 12.3 cm. No hydronephrosis. The pancreas is not well visualized due to obscuration from bowel gas. The visualized portions of the IVC and aorta are grossly unremarkable. IMPRESSION: 1. Hepatic steatosis and hepatomegaly. 2. Dilated common bile duct without filling defect. The gallbladder is not distended. Negative sonog raphic benitez's sign. Dilated common bile duct is of uncertain etiology. MRI of the abdomen with MRC P may be obtained for further evaluation if clinically warranted.
[2024-11-03] MEDS: ENOXAPARIN SOD 40 MG/0.4 ML SYRINGE SC SCH (08:44)
[2024-11-03 11:43] LABS: Alanine Aminotransferase 10 U/L (7-40); Alkaline Phosphatase 83 U/L (46-116); Anion Gap 6 (5-15); Calcium 9.2 mg/dL (8.7-10.4); Carbon Dioxide 30 mmol/L (20-31); Chloride 100 mmol/L (98-107); Magnesium 1.7 mg/dL (1.6-2.6); Sodium 136 mmol/L (136-145)
[2024-11-03 11:44] LABS: Total Protein 6.7 g/dL (5.7-8.2)
[2024-11-03 11:48] LABS: Hematocrit 38.9 % (36.0-46.0); Hemoglobin 12.6 g/dL (12.2-16.2); Mean Corpuscular Hemoglobin 30.2 pg (28.0-32.0); Mean Corpuscular Hgb Conc. 32.5 g/dL (32.0-36.0); Platelet Count (auto) 254 10^3/uL (140-450); Red Blood Cells 4.18 10^6/uL (4.0-5.20); Red Cell Distribution Width 16.2 % (11.8-14.3); White Blood Cell 14.1 10^3/uL (4.4-10.8)
[2024-11-03 11:53] LABS: Basophils % (manual) 0 (0.0-2.0); Blast Cells 0; Eosinophils % (manual) 0 (0-7); Myelocytes % 0; Promyelocytes % 0; Reactive Lymphocytes 0
[2024-11-03 11:58] LABS: Aspartate Aminotransferase 12 U/L (13-40); Bilirubin, Total 0.3 mg/dL (0.2-1.0); Blood Urea Nitrogen 6 mg/dL (9-23); Glucose 199 mg/dL (74-106); Potassium 3.2 mmol/L (3.5-5.1)
[2024-11-03 12:29] LABS: Band Neutrophils % (manual) 9; Lymphocytes % (manual) 10 (10.0-50.0); Metamyelocytes % 1; Monocytes % (manual) 3 (0-12); Platelet Estimate Adequate
[2024-11-03 12:40] LABS: Lipase 30 U/L (12-53)
[2024-11-03] MEDS: MEROPENEM 1GM IVPB 50 ML IV SCH (13:27)
[2024-11-03] MEDS ORDERED: OMEP1CAP70 PO (14:02)
[2024-11-03] MEDS ORDERED: PER60TP TOP (14:25)
--- NOTE | 2024-11-03 15:36 | DVHSR ---
APPROVED REPORT EXAM: Two-dimensional and M-mode echocardiogram with Doppler and color Doppler. Blood Pressure: 162/78 mmHg INDICATION Chest Pain RISK FACTORS Obesity: Height: 5'5, Weight: 315 DIMENSIONS LVDd6.3 (3.8-5.7cm)LA (2D)5.0 (1.9-4.0cm)Aortic Root3.3 (2.0-3.7cm) LVDs4.5 (2.5-4.0cm)LA (MM) (1.9-4.0cm)Aortic Cusp Exc1.5 (1.5-2.0cm) EF (%) 55.0 (55-70%)Rt. Atrium3.7 (1.9-4.0cm)Asc. Aorta3.8 cm IVSd1.0 (0.7-1.1cm)RV (D) (1.8-2.4cm) PWd1.1 (0.7-1.1cm) Mitral Valve MitralMitral Stenosis E wave1.11m/sMV Mean GR.mmHg A wave0.73m/sMV Peak GR.95mmHg E/A ratio1.52D MVAcm2 DECEL [id number] 1/2 Timems Aortic Valve Aortic ValveAortic Stenosis V11.36m/Supriya Mean GR.9mmHg V22.07m/Supriya Peak GR.17mmHg LVOT Diameter1.9 (1.8-2.4cm)Doppler AVA1.86cm2 Tricuspid Valve TR Velocity2.29m/s [id number] Other Information Quality : LimitedTechnically LimitedRhythm : Technically limited study due to patient position.body habitus. Conclusion Normal left ventricular size and dimension. Normal left ventricular systolic function estimated ejec tion fraction 55%. There is a grade 1 diastolic dysfunction. Normal right ventricular size and dimension. Normal right ventricular systolic function. Slightly i ncreased right ventricular systolic pressure 36 mm of mercury Normal biatrial size and dimension. There is a mild aortic valve sclerosis. Normal mitral valve structure and function. Normal tricuspid valve structure and function. The pulmonary valve is grossly normal. No pericardial effusion.
--- NOTE | 2024-11-03 15:41 | DVHPNRES ---
Progress Note Date Seen: Nov 03, 2024 Resident Creating Document: VAUGHN VIRAMONTES RESIDENT Medical Necessity Reason Pt with a Central, PICC or Fol: Yes The following are medically ne: PICC Line Subjective Review of Systems Patient is 59 years old female with past medical history of coronary artery disease, hypertension, diabetes mellitus type 2, COPD, congestive heart failure, hyperlipidemia, morbid obesity came with a complaint of chest pain and shortness of breaths. As per patient patient started having chest pain 3 days before on Friday, sudden onset, central, radiating to the back and to the left arm, sharp in nature, 10/10, aggravated with movement, no relieving factor. Patient also endorsed some cough with blood noticed on Friday. Patient's chest pain was associated with some shortness of breath, patient also endorsed orthopnea and paroxysmal nocturnal dyspnea. Endorsed further inquiry patient also reported nausea but no vomiting. Patient also endorsed having 1 episode of diarrhea on Friday dark colored stool. On further inquiry patient reported that his legs swelling has been there for 1 year but is getting worse for last couple of days. Patient denied any fever, constipation, acute joint redness, dysarthria or change in vision. Initial lab workup revealed elevated blood pressure with 184/83, tachypnea with respiration rate 24. Initial lab workup revealed leukocytosis with WBC 14.4, D-dimer 0.83, HGB A1c 6.6, negative for troponin I, BNP 132.87, TSH elevated 18.24, serum alcohol 4.7, negative for COVID-19.. Urinalysis revealed leukocyte esterase trace, RBC 1, WBC 5, bacteria none. CXR revealed-Right upper lung zone consolidation. Diffuse bilateral interstitial opacities. Doppler study of the lower extremity negative for DVT. PMH- coronary artery disease, hypertension, diabetes mellitus type 2, COPD, congestive heart failure, hyperlipidemia, morbid obesity PSH- thyroidectomy, tonsillectomy, retinal surgery, bilateral knee replacement, history of coronary angiogram Allergy- penicillin, shellfish allergy Personal History/ Social History- patient denies smoking/alcoholism/drug abuse, lives with daughter Patient was seen today at the bedside. Cardiovascular- denes palpitation Respiratory- denies wheezing Gastrointestinal- denies any rectal bleeding, nausea or vomiting Musculoskeletal-denies acute joint swelling or tenderness or redness Neurological- denies acute dysarthria, dysphagia, change in vision Psychiatry- denies depression or SI or HI Patient was seen today for clinical evaluation. Labs and chart reviewed. Patient complained of abdominal pain in the epigastric region, crampy in nature. Ordered ultrasound of the hepatobiliary system which revealed-Hepatic steatosis and hepatomegaly. Dilated common bile duct without filling defect. The gallbladder is not distended. Negative sonographic benitez's sign. Dilated common bile duct is of uncertain etiology. MRI of the abdomen with MRCP may be obtained for further evaluation if clinically warranted. Lipase 30. Ordered Pulmonary consult for further evaluation of care for pneumonia if patient needs any bronchoscopy. Ordered blood culture, changeed antibiotic from ceftriaxone to meropenem for aggressive management and care.CT angio chest revealed-No definite evidence of pulmonary embolism. Large consolidation in the right upper lobe may be of infectious etiology. Recommend close follow-up to resolution to exclude any underlying lesion. Enlarged central pulmonary arteries which may be sequelae of pulmonary arterial hypertension. Objective vital signs Vital Sign Date Time Temp Pulse Resp B/P (MAP) Pulse Ox O2 Delivery O2 Flow Rate FiO2 11/03/24 13:00 97.9 55 20 148/72 (97) 94 97.9 11/03/24 10:00 Nasal Cannula* 2 28 Total Intake and Output 11/02/24 11/02/24 11/03/24 15:00 23:00 07:00 Intake Total 700 ml 1171 ml Output Total 600 ml Balance 700 ml 571 ml medications Current Medications Medications Dose Ordered Sig/Heriberto Route Start Time Stop Time Status Last Admin Dose Admin Levothyroxine Sodium 150 mcg QAM@0600 PO 11/02/24 06:00 11/03/24 05:33 150 MCG Aspirin 81 mg DAILY PO 11/02/24 10:00 11/03/24 08:44 81 MG Atorvastatin Calcium 20 mg HS PO 11/01/24 22:00 11/02/24 21:21 20 MG Hydralazine HCl 10 mg Q6HP PRN IV 11/01/24 16:30 11/02/24 04:24 10 MG Amlodipine Besylate 5 mg DAILY PO 11/02/24 10:00 11/03/24 08:44 5 MG Gemfibrozil 600 mg DAILY PO 11/02/24 10:00 11/03/24 08:45 600 MG Diagnostic Test (Pha) 1 strip ACHS 11/01/24 17:00 11/03/24 11:20 1 STRIP Insulin Human Regular ACHS SC 11/01/24 17:00 11/03/24 11:22 4 UNITS Dextrose 50 ml UD PRN IV 11/01/24 16:30 Acetaminophen/ Hydrocodone Bitart 1 tab Q4HP PRN PO 11/01/24 16:30 11/03/24 08:20 1 TAB Ondansetron HCl 4 mg Q4HP PRN IV 11/01/24 16:30 11/02/24 09:54 4 MG Docusate Sodium 100 mg BIDPRN PRN PO 11/01/24 16:30 Morphine Sulfate 2 mg Q4HPRN PRN IV 11/01/24 16:30 Nitroglycerin 0.4 mg Q5MINP PRN SL 11/01/24 17:15 Morphine Sulfate 2 mg Q30M PRN IV 11/01/24 17:15 Doxycycline Hyclate 250 ml @ 125 mls/hr Q12H IV 11/01/24 17:45 11/03/24 05:21 125 MLS/HR Albuterol 2.5 mg Q6HPRN PRN NEB 11/02/24 00:15 11/03/24 12:32 2.5 MG Insulin Glargine 15 units QAM SC 11/03/24 07:00 Famotidine 20 mg Q12HR IV 11/02/24 10:00 11/03/24 05:33 20 MG Methadone HCl 55 mg DAILY PO 11/02/24 10:00 11/03/24 10:51 55 MG Sertraline HCl 50 mg DAILY PO 11/02/24 10:00 11/03/24 08:45 50 MG Acetaminophen 650 mg Q6HP PRN PO 11/02/24 12:00 Enoxaparin Sodium 40 mg DAILY SC 11/03/24 10:00 11/03/24 08:44 40 MG Meropenem 50 ml @ 17 mls/hr Q8HR IV 11/03/24 14:00 11/03/24 13:27 17 MLS/HR Examination General examination- awake, alert, oriented, 1% HEENT- PEERLA, no acute nasal discharge Cardiovascular- S1-S2 audible, rate and rhythm regular, no murmur Respiratory- CTAB, no wheeze or rhonchi Gastrointestinal-nontender, bowel sound+. Nondistended Musculoskeletal-no acute joint swelling or tenderness or redness# Lower extremity- bilateral leg edema++ Neurological- cranial nerves intact, no acute dysarthria or dysphagia Psychiatry- denies depression or SI or HI laboratory and microbiology Laboratory Tests 11/03/24 11:15 Test 11/03/24 11:15 Range/Units Serum Glucose 199 H 74-106 mg/dL Problem List/Assessment/Plan Problem List/Assessment/Plan #Acute hypoxic respiratory failure likely due to pneumonia, rule out pulmonary embolism # pneumonia Gram-positive versus Gram-negative # acute exacerbation of COPD likely due to pneumonia # rule out pulmonary embolism # diabetes mellitus type # congestive heart failure, no acute exacerbation # hypertension # hyperlipidemia # CAD # hypothyroidism # morbid obesity #Leukocytosis # hypokalemia replenished CT angio chest revealed-No definite evidence of pulmonary embolism. Large consolidation in the right upper lobe may be of infectious etiology. Recommend close follow-up to resolution to exclude any underlying lesion. Enlarged central pulmonary arteries which may be sequelae of pulmonary arterial hypertension. Ordered pulmonary consult to rule out if patient needs any bronchoscopic Pending echo 2D report Ordered blood culture Discontinued antibiotic ceftriaxone on 11/03/2024 and ordered antibiotic meropenem for aggressive management and care Continue med ertapenem 1 g IV Q 8 H Continue doxycycline 100 mg IV b.i.d. Continue amlodipine 5 mg p.o. daily Continue levothyroxine as prescribed Continue sertraline for 50 mg p.o. daily Continue atorvastatin 20 mg q.h.s. Continue famotidine 20 mg IV b.i.d. Continue aspirin 81 mg p.o. daily Continue other p.r.n. medications Goals of care/advance care planning; FULL CODE; discussed with the patient >15 minutes PUD prophylaxis: Famotidine DVT prophylaxis: Lovenox Plan discussed with Dr. Hemphill, nursing staff, patient Total time spent on patient evaluation, chart review, assessment and plan, discussion discussion >30 minutes Plan discussed with: Patient Plan discussed with: Patient, Other ( RN) My Orders My Orders Orders - VAUGHN VIRAMONTES RESIDENT Procedure Category Date Status Time Enoxaparin Sodium PHA 11/03/24 In Process (Lovenox) 10:00 Stool Occult Blood LAB 11/02/24 Logged 18:06 Consistent DIET 11/02/24 Transmitted Carb(Ccho)Diabetes Dinner Abdomen Limited US 11/03/24 Resulted 07:12 Blood Culture ELIZABETH 11/03/24 Uncollected 09:55 *Consult CONS 11/03/24 Transmitted / 09:55 D/C Sitter ORDERS 11/03/24 Transmitted 09:59 Date of Service: Nov 03, 2024 Billing Provider: GINO HEMPHILL MD Common Visit Codes: [id number] INP/OBS CARE(HIGH) VAUGHN VIRAMONTES RESIDENT Nov 03, 2024 15:41 GINO HEMPHILL MD Nov 03, 2024 20:16
[2024-11-03] MEDS: MAGNESIUM SULFATE 1GM/100ML 100 ML IV ONE (16:39)
[2024-11-03] MEDS: POTASSIUM CHL 20 Meq TABLET PO ONE (16:39)
--- NOTE | 2024-11-03 21:55 | DVHINCON2 ---
Date of service: Nov 03, 2024 Referring Physician Antonietta Hopson MD Reason for Consultation Acute hypoxic respiratory failure, pneumonia History of Present Illness A 59-year-old woman, morbidly obese with past medical history including diabetes mellitus, hyperlipidemia, COPD, NE, and coronary artery disease who presented to ED on 11/01/24 with complaint of chest pain. Patient reported symptoms progressively worsened with shortness of breath and chills. Pain was described as sharp in nature, radiating to the shoulder, back, rating pain 7/10 on pain scale, getting worse that prompted this visit. Of note, patient is currently being seen by ID for a parasitic rash localized to her left hand. Workup in ED showed WBC 14.4, platelets 225, sodium 138, potassium 3.4, BUN 11, creatinine 0.74, GFR 93, glucose 193. Chest x-ray demonstrated right upper lung zone consolidation, diffuse bilateral interstitial opacities. Patient was admitted for further care and pulmonary consultation is requested for evaluation and management due to acute hypoxic respiratory failure and pneumonia. Review of Systems: 14-point review of systems negative unless otherwise noted above. Past Medical History: Diabetes mellitus, hypertension, hyperlipidemia, COPD, NE, CHF, coronary artery disease, angina, and cancer. Past Surgical History: Thyroidectomy, Tonsillectomy, retinal surgery, bilateral knee replacement, angiogram Medications: Reviewed. Allergies: Shellfish Allergy Penicillins. Family History: No family history of premature CAD. No family history of lung disorders. Social History: Current smoker. No alcohol or illicit drug use. Family History: Patient reports no known family medical history. Allergies: Coded Allergies: Shellfish Allergy (Verified Allergy, Mild, 05/24/15) Penicillins (Verified Allergy, Unknown, 05/23/15) Home Meds Active Scripts Aspirin (Aspir-Low Ec) 81 Mg Tb, 81 MG PO DAILY, #30 TAB Prov:MACIE SCHAEFER MD 05/26/15 Reported Medications Permethrin (Elimite) 5 % Cre, 1 APPLIC TOP UD for 7 Days, #60 11/03/24 Triamcinolone Acetonide (Kenalog) 1 Applic Ap, 1 APPLIC TOP BID for 30 Days, #60 11/03/24 Lidocaine (Lidocaine) 5 % Pad, 5 % EX DAILY for 30 Days, #30 11/03/24 Albuterol Sulfate (Albuterol Sulfate Hfa) 108 Mcg/Act Aer, 108 MCG IN UD for 16 Days, #18 11/03/24 Losartan Potassium (Losartan Potassium) 25 Mg Tab, 1 TAB PO DAILY for 90 Days, #90 11/03/24 Sumatriptan Succinate (Sumatriptan Succinate) 100 Mg Tab, 1 TAB PO UD for 30 Days, #9 11/03/24 Fenofibrate Micronized (Fenofibrate) 134 Mg Cap, 1 CAP PO DAILY for 90 Days, #90 11/03/24 Hydroxyzine Pamoate (Hydroxyzine Pamoate) 25 Mg Cap, 1 CAP PO TID for 40 Days, #120 11/03/24 Omeprazole (Omeprazole Dr) 20 Mg Cap, 1 CAP PO DAILY for 90 Days, #90 24 Mupirocin Calcium (Topical) (MUPIROCIN) 2 % Cre, 2 % EX UD for 11 Days, #22 11/02/24 Brimonidine Tartrate-Timolol M (Combigan) 0.2 Mg/0.5 % Connie, 0.2 MG OP, ML 11/02/24 Levothyroxine Sodium (Levothyroxine Sodium) 50 Mcg Tab, 50 MCG PO QAM for 30 Days, MCG 11/02/24 Sertraline Hcl (Sertraline Hcl) 50 Mg Tab, 50 MG PO DAILY for 30 Days, MG 11/02/24 Metformin Hydrochloride (Metformin Hcl) 500 Mg Tab, 500 MG PO DAILY for 30 Days, MG 11/02/24 Furosemide (Furosemide) 40 Mg Tab, 1 TAB PO DAILY, #30 TAB 5 Refills 11/02/24 Ibuprofen (Ibuprofen) 800 Mg Tab, 1 TAB PO TID for 90 Days, #270 11/02/24 Methadone Hcl (METHADONE HCL TABLET) 10 Mg Tb, 55 MG PO DAILY, TAB 11/02/24 Amlodipine Besylate (Amlodipine Besylate) 5 Mg Tab, 20 MG PO DAILY for 30 Days, MG 11/02/24 Atorvastatin Calcium (Lipitor) 20 Mg Tab, 20 MG PO DAILY, TAB 11/02/24 Gemfibrozil (Gemfibrozil) 600 Mg Tab, 600 MG PO DAILY, TAB 05/23/15 Discontinued Reported Medications Fenofibrate (FENOFIBRATE) 130 Mg Cap, 134 MG PO, CAP 11/02/24 Hydroxyzine Hcl (Hydroxyzine Hcl) 25 Mg Tab, 25 MG PO for 30 Days, MG 11/02/24 Current Medications Current Medications Medications (Trade) Dose Ordered Sig/Heriberto Route PRN Reason Start Time Stop Time Status Last Admin Insulin Glargine (Lantus) 15 units QAM SC 11/03/24 07:00 Enoxaparin Sodium (Lovenox) 40 mg DAILY SC 11/03/24 10:00 11/03/24 08:44 Meropenem 50 ml @ 17 mls/hr Q8HR IV 11/03/24 14:00 11/03/24 21:34 Vital Signs Vital Signs Date Time Temp Pulse Resp B/P (MAP) Pulse Ox O2 Delivery O2 Flow Rate FiO2 11/03/24 18:39 59 20 91 11/03/24 18:31 Room Air* 0 21 11/03/24 16:38 97.4 147/70 (95) 97.4 Physical Exam Gen.: Patient lying in bed in no apparent distress. On supplemental oxygen. Head: Normocephalic, atraumatic. Eyes: EOMI/PERRLA. Ears: Normal hearing. Normal anatomy. Neck/trachea: Trachea midline, supple. Nose: Normal external anatomy. Mouth: Moist mucous membranes. Chest: Decreased air entry bilaterally. No wheezing or rhonchi. Cardiovascular: Positive S1, positive S2. Regular rate and rhythm. Abdomen: Positive bowel sounds in all 4 quadrants. Soft, non-tender, non- distended. : Deferred. Rectal: Deferred. Skin: Warm, dry. Intact. Extremities: 2+ radial pulses bilaterally. No lower extremity edema. Neuro: Awake, alert, oriented x3. No gross motor or sensory deficits. Cranial nerves II through XII intact. Gait not assessed. Labs/Diagnostic Data Labs Test 11/03/24 21:12 11/03/24 11:15 11/02/24 11:50 11/02/24 00:30 Range/Units POC Glucose 256 H 70-106 mg/dl White Blood Count 14.1 #H 4.4-10.8 10^3/uL Red Blood Count 4.18 4.0-5.20 10^6/uL Hemoglobin 12.6 12.2-16.2 g/dL Hematocrit 38.9 36.0-46.0 % Mean Corpuscular Volume 93.0 80.0-100.0 fL Mean Corpuscular Hemoglobin 30.2 28.0-32.0 pg Mean Corpuscular Hemoglobin Concent 32.5 32.0-36.0 g/dL Red Cell Distribution Width 16.2 H 11.8-14.3 % Platelet Count 254 140-450 10^3/uL Mean Platelet Volume 8.3 6.9-10.8 fL Neutrophils (%) (Auto) 37.0-80.0 % Lymphocytes (%) (Auto) 10.0-50.0 % Monocytes (%) (Auto) 0.0-12.0 % Basophils (%) (Auto) 0.0-2.0 % Neutrophils # (Auto) 1.6-8.6 10 ^3/uL Lymphocytes # (Auto) 0.4-5.4 10 ^3/uL Monocytes # (Auto) 0-1.3 10 ^3/uL Differential Total Cells Counted 100.0 100 Neutrophils % (Manual) 77 37.0-80.0 Band Neutrophils % (Manual) 9 Lymphocytes % (Manual) 10 10.0-50.0 Monocytes % (Manual) 3 0-12 Eosinophils % (Manual) 0 0-7 Basophils % (Manual) 0 0.0-2.0 Metamyelocytes % (manual) 1 Myelocytes % (Manual) 0 Promyelocytes % (Manual) 0 Blast Cells % (Manual) 0 Reactive Lymphocytes 0 Platelet Estimate Adequate Sodium Level 136 136-145 mmol/L Potassium Level 3.2 L 3.5-5.1 mmol/L Chloride Level 100 98-107 mmol/L Carbon Dioxide Level 30 20-31 mmol/L Anion Gap 6 5-15 Blood Urea Nitrogen 6 L 9-23 mg/dL Creatinine 0.60 0.550-1.02 mg/dL Glomerular Filtration Rate Calc 103 >90 mL/min BUN/Creatinine Ratio 10.0 10.0-20.0 Serum Glucose 199 H 74-106 mg/dL Calcium Level 9.2 8.7-10.4 mg/dL Magnesium Level 1.7 1.6-2.6 mg/dL Total Bilirubin 0.3 0.2-1.0 mg/dL Aspartate Amino Transferase (AST) 12 L 13-40 U/L Alanine Aminotransferase (ALT) 10 7-40 U/L Alkaline Phosphatase 83 46-116 U/L Total Protein 6.7 5.7-8.2 g/dL Albumin 4.0 3.2-4.8 g/dL Lipase 30 12-53 U/L Clumped Platelets None D-Dimer, Quantitative 0.83 H 0.0-0.49 mg/L FEU Lactic Acid Level 1.9 0.4-2.0 mmol/L Phosphorus Level 2.7 2.4-5.1 mg/dL B-Type Natriuretic Peptide 132.87 0-100 pg/mL Free Thyroxine (T4) Calculated 0.73 L 0.89-1.76 ng/dL Free Triiodothyronine (T3) pg/mL 1.41 L 2.3-4.2 pg/mL Plasma/Serum Blood Alcohol 4.7 <10 mg/dL Urine Color Light-yellow Yellow Urine Clarity Clear Clear Urine pH 7.5 5.0-9.0 Urine Specific [place] 1.015 1.001-1.035 Urine Protein Negative Negative Urine Ketones Negative Negative Urine Blood Negative Negative /uL Urine Nitrite Negative Negative Urine Bilirubin Negative Negative Urine Urobilinogen Normal Negative mg/dL Urine Leukocyte Esterase Trace Negative /uL Urine RBC 1 0 - 4 /hpf Urine WBC 5 0 - 5 /hpf Urine Squamous Epithelial Cells Few <5 /hpf Urine Bacteria None seen None Seen /hpf Urine Glucose Normal Normal mg/dL Test 11/01/24 22:42 11/01/24 14:06 11/01/24 12:54 Range/Units SARS-CoV-2 Antigen (Rapid) Negative NEGATIVE Troponin I High Sensitivity 6 </=34 ng/L Eosinophils (%) (Auto) 0.6 0.0-7.0 % Eosinophils # (Auto) 0.1 0-0.8 10 ^3/uL Basophils # (Auto) 0 0-0.2 10 ^3/uL Nucleated Red Blood Cells 0.2 % Hemoglobin A1c 6.6 H <5.7 % A1C Thyroid Stimulating Hormone (TSH) 18.24 H 0.55-4.78 uIU/mL Assessment Impression: Acute hypoxic respiratory failure RUL pneumonia, likely gram negative Leucocytosis Atelectasis Pulmonary edema vs interstitial lung disease Nicotine dependence Morbid obesity Plan: Supplemental oxygen 2 LPM NC Titrate to keep O2 sats above 92%. Taper O2 as tolerated. CXR on 11/01/24 demonstrates right upper lung zone consolidation. Diffuse bilateral interstitial opacities. CT angio on 11/02/24 shows no e/o pulmonary embolism. Large consolidation in RUL, likely pneumonia. Enlarged central pulmonary arteries. Continue bronchodilators PRN IV antibiotics Incentive spirometry Send sputum for Gram stain and culture Monitor wbc Recommend to repeat CT chest in 6-8 weeks to assess for interval changes and ensure no underlying pathology. Pain control Avoid oversedation Monitor renal function. Monitor electrolytes. Supplement as necessary. Monitor ins and outs. Maintain euvolemia Smoking cessation discussed for greater than 10 minutes. Diet and lifestyle modifications for weight reduction Morbid obesity - complicates all care Accu-Cheks, ISS. GI prophylaxis - Pepcid DVT prophylaxis. Prognosis: Poor given patient's multiple co-morbidities. Rest of plan per hospitalist and other consultants. Thank you Dr. Antonietta Hopson MD, for allowing me to participate in this patient's care. Further recommendations will depend on the patient's clinical course. Please do not hesitate to contact me if you have any questions or concerns. This medical document was created using an electronic medical record system with [employer] computerized dictation system. Although these documentations are being carefully reviewed, there may still be some phonetic and typographical changes. The errors are purely typographical, due to imperfection on the software program, and do not reflect any compromise in the patient's medical care. Plan discussed with: Patient, Other (ALYSSA Christiansen/MD Hopson) NEVA MEREDITH MD Nov 03, 2024 21:55
[2024-11-03] MEDS: FAMOTIDINE (10MG/ML) 2ML VL IV ONE (23:08)
[2024-11-04] VITALS (14 sets, daily range): BP systolic 146–175; BP diastolic 58–89; PULSE 55–79; RESP 16–20; TEMP 97.8–98.8; O2SAT 90–99
[2024-11-04] MEDS: DOCUSATE SOD 100 MG CAP PO PRN (03:12)
[2024-11-04 07:20] LABS: Anion Gap 9 (5-15); Carbon Dioxide 30 mmol/L (20-31); Chloride 101 mmol/L (98-107); Potassium 3.7 mmol/L (3.5-5.1); Sodium 140 mmol/L (136-145)
[2024-11-04 07:21] LABS: Calcium 9.6 mg/dL (8.7-10.4)
[2024-11-04 07:26] LABS: BUN/Creatinine Ratio 13.1 (10.0-20.0); Magnesium 1.8 mg/dL (1.6-2.6); Triglycerides 147 mg/dL (< 150)
[2024-11-04 07:28] LABS: Cholesterol 173 mg/dL (< 200); HDL Cholesterol 46 mg/dL (40-59)
[2024-11-04 07:30] LABS: Blood Urea Nitrogen 8 mg/dL (9-23); Glucose 173 mg/dL (74-106); LDL Cholesterol 107 mg/dL (< 100)
[2024-11-04 08:50] LABS: Hematocrit 44.5 % (36.0-46.0); Hemoglobin 14.7 g/dL (12.2-16.2); Mean Corpuscular Hemoglobin 30.8 pg (28.0-32.0); Mean Corpuscular Volume 93.2 fL (80.0-100.0); Platelet Count (auto) 189 10^3/uL (140-450); Red Blood Cells 4.78 10^6/uL (4.0-5.20); Red Cell Distribution Width 15.6 % (11.8-14.3); White Blood Cell 11.4 10^3/uL (4.4-10.8)
[2024-11-04 09:07] LABS: Basophils % (manual) 0 (0.0-2.0); Blast Cells 0; Metamyelocytes % 0; Myelocytes % 0; Promyelocytes % 0; Reactive Lymphocytes 0
[2024-11-04] MEDS: amLODIPine BESYLATE 5 MG TAB PO SCH (09:32)
[2024-11-04 10:14] LABS: Band Neutrophils % (manual) 2; Eosinophils % (manual) 3 (0-7); Lymphocytes % (manual) 19 (10.0-50.0); Monocytes % (manual) 10 (0-12)
[2024-11-04 10:15] LABS: Platelet Estimate Adequate
[2024-11-04] MEDS: LISINOPRIL 20 MG TAB PO ONE (11:59)
[2024-11-04] MEDS: IBUPROFEN 600 MG TAB PO SCH (11:59)
[2024-11-04] MEDS: MAGNESIUM SULFATE 1GM/100ML 100 ML IV ONE (15:50)
--- NOTE | 2024-11-04 17:49 | DVHPNRES ---
Progress Note Date Seen: Nov 04, 2024 Resident Creating Document: VAUGHN VIRAMONTES RESIDENT Medical Necessity Reason Pt with a Central, PICC or Fol: Yes The following are medically ne: PICC Line Subjective Review of Systems Patient is 59 years old female with past medical history of coronary artery disease, hypertension, diabetes mellitus type 2, COPD, congestive heart failure, hyperlipidemia, morbid obesity came with a complaint of chest pain and shortness of breaths. As per patient patient started having chest pain 3 days before on Friday, sudden onset, central, radiating to the back and to the left arm, sharp in nature, 10/10, aggravated with movement, no relieving factor. Patient also endorsed some cough with blood noticed on Friday. Patient's chest pain was associated with some shortness of breath, patient also endorsed orthopnea and paroxysmal nocturnal dyspnea. Endorsed further inquiry patient also reported nausea but no vomiting. Patient also endorsed having 1 episode of diarrhea on Friday dark colored stool. On further inquiry patient reported that his legs swelling has been there for 1 year but is getting worse for last couple of days. Patient denied any fever, constipation, acute joint redness, dysarthria or change in vision. Initial lab workup revealed elevated blood pressure with 184/83, tachypnea with respiration rate 24. Initial lab workup revealed leukocytosis with WBC 14.4, D-dimer 0.83, HGB A1c 6.6, negative for troponin I, BNP 132.87, TSH elevated 18.24, serum alcohol 4.7, negative for COVID-19.. Urinalysis revealed leukocyte esterase trace, RBC 1, WBC 5, bacteria none. CXR revealed-Right upper lung zone consolidation. Diffuse bilateral interstitial opacities. Doppler study of the lower extremity negative for DVT. PMH- coronary artery disease, hypertension, diabetes mellitus type 2, COPD, congestive heart failure, hyperlipidemia, morbid obesity PSH- thyroidectomy, tonsillectomy, retinal surgery, bilateral knee replacement, history of coronary angiogram Allergy- penicillin, shellfish allergy Personal History/ Social History- patient denies smoking/alcoholism/drug abuse, lives with daughter Patient was seen today at the bedside. Cardiovascular- denes palpitation Respiratory- denies wheezing Gastrointestinal- denies any rectal bleeding, nausea or vomiting Musculoskeletal-denies acute joint swelling or tenderness or redness Neurological- denies acute dysarthria, dysphagia, change in vision Psychiatry- denies depression or SI or HI Patient was seen today for clinical evaluation. Labs and chart reviewed. Titrate to keep O2 sats above 92%. Taper O2 as tolerated. Incentive spirometry, recommended to continue new IV antibiotic and bronchodilators p.r.n.Recommend to repeat CT chest in 6-8 weeks to assess for interval changes and ensure no underlying pathology. Objective vital signs Vital Sign Date Time Temp Pulse Resp B/P (MAP) Pulse Ox O2 Delivery O2 Flow Rate FiO2 11/04/24 17:12 161/77 11/04/24 16:00 98.8 59 16 94 98.8 11/04/24 10:00 Nasal Cannula* 2 28 Total Intake and Output 11/03/24 11/03/24 11/04/24 15:00 23:00 07:00 Intake Total 250 ml 1300 ml 500 ml Output Total 500 ml Balance 250 ml 800 ml 500 ml medications Current Medications Medications Dose Ordered Sig/Heriberto Route Start Time Stop Time Status Last Admin Dose Admin Levothyroxine Sodium 150 mcg QAM@0600 PO 11/02/24 06:00 11/04/24 06:57 150 MCG Aspirin 81 mg DAILY PO 11/02/24 10:00 11/04/24 09:29 81 MG Atorvastatin Calcium 20 mg HS PO 11/01/24 22:00 11/03/24 21:34 20 MG Hydralazine HCl 10 mg Q6HP PRN IV 11/01/24 16:30 11/04/24 17:12 10 MG Gemfibrozil 600 mg DAILY PO 11/02/24 10:00 11/04/24 09:31 600 MG Diagnostic Test (Pha) 1 strip ACHS 11/01/24 17:00 11/04/24 16:37 1 STRIP Insulin Human Regular ACHS SC 11/01/24 17:00 11/04/24 16:39 3 UNITS Dextrose 50 ml UD PRN IV 11/01/24 16:30 Acetaminophen/ Hydrocodone Bitart 1 tab Q4HP PRN PO 11/01/24 16:30 11/04/24 03:14 1 TAB Ondansetron HCl 4 mg Q4HP PRN IV 11/01/24 16:30 11/02/24 09:54 4 MG Docusate Sodium 100 mg BIDPRN PRN PO 11/01/24 16:30 11/04/24 03:12 100 MG Morphine Sulfate 2 mg Q4HPRN PRN IV 11/01/24 16:30 Nitroglycerin 0.4 mg Q5MINP PRN SL 11/01/24 17:15 Morphine Sulfate 2 mg Q30M PRN IV 11/01/24 17:15 Doxycycline Hyclate 250 ml @ 125 mls/hr Q12H IV 11/01/24 17:45 11/04/24 17:13 125 MLS/HR Albuterol 2.5 mg Q6HPRN PRN NEB 11/02/24 00:15 11/04/24 07:17 2.5 MG Insulin Glargine 15 units QAM SC 11/03/24 07:00 11/04/24 07:00 15 UNITS Famotidine 20 mg Q12HR IV 11/02/24 10:00 11/03/24 23:11 20 MG Methadone HCl 55 mg DAILY PO 11/02/24 10:00 11/04/24 09:30 55 MG Sertraline HCl 50 mg DAILY PO 11/02/24 10:00 11/04/24 09:30 50 MG Acetaminophen 650 mg Q6HP PRN PO 11/02/24 12:00 Enoxaparin Sodium 40 mg DAILY SC 11/03/24 10:00 11/04/24 09:29 40 MG Meropenem 50 ml @ 17 mls/hr Q8HR IV 11/03/24 14:00 11/04/24 06:12 17 MLS/HR Amlodipine Besylate 10 mg DAILY PO 11/04/24 10:00 11/04/24 09:32 10 MG Ibuprofen 600 mg Q6HR PO 11/04/24 12:00 11/04/24 17:12 600 MG Examination General examination- awake, alert, oriented, 1% HEENT- PEERLA, no acute nasal discharge Cardiovascular- S1-S2 audible, rate and rhythm regular, no murmur Respiratory- CTAB, no wheeze or rhonchi Gastrointestinal-nontender, bowel sound+. Nondistended Musculoskeletal-no acute joint swelling or tenderness or redness# Lower extremity- bilateral leg edema++ Neurological- cranial nerves intact, no acute dysarthria or dysphagia Psychiatry- denies depression or SI or HI laboratory and microbiology Laboratory Tests 11/04/24 08:38 11/04/24 06:47 Test 11/04/24 06:47 Range/Units Serum Glucose 173 H 74-106 mg/dL Problem List/Assessment/Plan Problem List/Assessment/Plan #Acute hypoxic respiratory failure likely due to pneumonia, rule out pulmonary embolism # pneumonia Gram-positive versus Gram-negative # acute exacerbation of COPD likely due to pneumonia # rule out pulmonary embolism #Atelectasis #Pulmonary edema vs interstitial lung disease # diabetes mellitus type # congestive heart failure, no acute exacerbation # hypertension # hyperlipidemia # CAD # hypothyroidism # morbid obesity #Leukocytosis # hypokalemia replenished #Nicotine dependence #Morbid obesity CT angio chest revealed-No definite evidence of pulmonary embolism. Large consolidation in the right upper lobe may be of infectious etiology. Recommend close follow-up to resolution to exclude any underlying lesion. Enlarged central pulmonary arteries which may be sequelae of pulmonary arterial hypertension. Ordered pulmonary consult to rule out if patient needs any bronchoscopic Pending echo 2D report Ordered blood culture Discontinued antibiotic ceftriaxone on 11/03/2024 and ordered antibiotic meropenem for aggressive management and care Continue med ertapenem 1 g IV Q 8 H Continue doxycycline 100 mg IV b.i.d. Continue amlodipine 5 mg p.o. daily Continue levothyroxine as prescribed Continue sertraline for 50 mg p.o. daily Continue atorvastatin 20 mg q.h.s. Continue famotidine 20 mg IV b.i.d. Continue aspirin 81 mg p.o. daily Continue other p.r.n. medications Goals of care/advance care planning; FULL CODE; discussed with the patient >15 minutes PUD prophylaxis: Famotidine DVT prophylaxis: Lovenox Plan discussed with Dr. Hemphill, nursing staff, patient Total time spent on patient evaluation, chart review, assessment and plan, discussion discussion >30 minutes Plan discussed with: Patient Plan discussed with: Patient, Other (RN) My Orders My Orders Orders - VAUGHN VIRAMONTES RESIDENT Procedure Category Date Status Time Cleanse Wound With CHERYL 11/03/24 In Process Wound Clean 16:52 Amlodipine Tablet PHA 11/04/24 In Process (Norvasc Tablet) 10:00 Ibuprofen Tablet PHA 11/04/24 In Process (Motrin Tablet) 12:00 Incentive Spirometry ORDERS 11/04/24 Transmitted 09:47 Insert Midline ORDERS 11/04/24 Transmitted 17:43 Date of Service: Nov 04, 2024 Billing Provider: GINO HEMPHILL MD Common Visit Codes: [id number] INP/OBS CARE(HIGH) VAUGHN VIRAMONTES RESIDENT Nov 04, 2024 17:49 GINO HEMPHILL MD Nov 04, 2024 20:27
--- NOTE | 2024-11-04 23:09 | DVHPN2 ---
Progress Note - Dictate Date Seen: Nov 04, 2024 Medical Necessity Reason Pt with a Central, PICC or Fol: No The following are medically ne: PICC Line Subjective Patient seen and examined at bedside. Remains on supplemental oxygen Overnight events reviewed. vital signs Vital Sign Date Time Temp Pulse Resp B/P (MAP) Pulse Ox O2 Delivery O2 Flow Rate FiO2 11/04/24 21:00 97.8 70 17 146/73 (97) 96 97.8 11/04/24 10:00 Nasal Cannula* 2 28 Total Intake and Output 11/03/24 11/03/24 11/04/24 14:59 22:59 06:59 Intake Total 250 ml 1300 ml 500 ml Output Total 500 ml Balance 250 ml 800 ml 500 ml medications Current Medications Medications Dose Ordered Sig/Heriberto Route Start Time Stop Time Status Last Admin Dose Admin Levothyroxine Sodium 150 mcg QAM@0600 PO 11/02/24 06:00 11/04/24 06:57 150 MCG Aspirin 81 mg DAILY PO 11/02/24 10:00 11/04/24 09:29 81 MG Atorvastatin Calcium 20 mg HS PO 11/01/24 22:00 11/03/24 21:34 20 MG Hydralazine HCl 10 mg Q6HP PRN IV 11/01/24 16:30 11/04/24 17:12 10 MG Gemfibrozil 600 mg DAILY PO 11/02/24 10:00 11/04/24 09:31 600 MG Diagnostic Test (Pha) 1 strip ACHS 11/01/24 17:00 11/04/24 22:31 1 STRIP Insulin Human Regular ACHS SC 11/01/24 17:00 11/04/24 22:30 6 UNITS Dextrose 50 ml UD PRN IV 11/01/24 16:30 Acetaminophen/ Hydrocodone Bitart 1 tab Q4HP PRN PO 11/01/24 16:30 11/04/24 03:14 1 TAB Ondansetron HCl 4 mg Q4HP PRN IV 11/01/24 16:30 11/02/24 09:54 4 MG Docusate Sodium 100 mg BIDPRN PRN PO 11/01/24 16:30 11/04/24 22:26 100 MG Morphine Sulfate 2 mg Q4HPRN PRN IV 11/01/24 16:30 Nitroglycerin 0.4 mg Q5MINP PRN SL 11/01/24 17:15 Morphine Sulfate 2 mg Q30M PRN IV 11/01/24 17:15 Doxycycline Hyclate 250 ml @ 125 mls/hr Q12H IV 11/01/24 17:45 11/04/24 17:13 125 MLS/HR Albuterol 2.5 mg Q6HPRN PRN NEB 11/02/24 00:15 11/04/24 07:17 2.5 MG Insulin Glargine 15 units QAM SC 11/03/24 07:00 11/04/24 07:00 15 UNITS Famotidine 20 mg Q12HR IV 11/02/24 10:00 11/04/24 22:16 20 MG Methadone HCl 55 mg DAILY PO 11/02/24 10:00 11/04/24 09:30 55 MG Sertraline HCl 50 mg DAILY PO 11/02/24 10:00 11/04/24 09:30 50 MG Acetaminophen 650 mg Q6HP PRN PO 11/02/24 12:00 Enoxaparin Sodium 40 mg DAILY SC 11/03/24 10:00 11/04/24 09:29 40 MG Meropenem 50 ml @ 17 mls/hr Q8HR IV 11/03/24 14:00 11/04/24 22:15 17 MLS/HR Amlodipine Besylate 10 mg DAILY PO 11/04/24 10:00 11/04/24 09:32 10 MG Ibuprofen 600 mg Q6HR PO 11/04/24 12:00 11/04/24 22:27 600 MG objective Gen.: Patient lying in bed in no apparent distress. On supplemental oxygen. Head: Normocephalic, atraumatic. Eyes: EOMI/PERRLA. Ears: Normal hearing. Normal anatomy. Neck/trachea: Trachea midline, supple. Nose: Normal external anatomy. Mouth: Moist mucous membranes. Chest: Decreased air entry bilaterally. No wheezing or rhonchi. Cardiovascular: Positive S1, positive S2. Regular rate and rhythm. Abdomen: Positive bowel sounds in all 4 quadrants. Soft, non-tender, non- distended. : Deferred. Rectal: Deferred. Skin: Warm, dry. Intact. Extremities: 2+ radial pulses bilaterally. No lower extremity edema. Neuro: Awake, alert, oriented x3. No gross motor or sensory deficits. Cranial nerves II through XII intact. Gait not assessed. laboratory and microbiology Laboratory Tests 11/04/24 08:38 11/04/24 06:47 Test 11/04/24 06:47 Range/Units Serum Glucose 173 H 74-106 mg/dL Assessment/Plan Impression: Acute hypoxic respiratory failure RUL pneumonia, likely gram negative Leucocytosis Atelectasis Pulmonary edema vs interstitial lung disease Nicotine dependence Morbid obesity Events: Remains on supplemental oxygen, 2 LPM NC Taper O2 as tolerated Continue antibiotics d/t pneumonia - doxycycline and meropenem Incentive spirometry DVT prophylaxis Labs and imaging reviewed. Rest of plan as noted below. Plan: Supplemental oxygen Titrate to keep O2 sats above 92%. CXR on 11/01/24 demonstrates right upper lung zone consolidation. Diffuse bilateral interstitial opacities. CT angio on 11/02/24 shows no e/o pulmonary embolism. Large consolidation in RUL, likely pneumonia. Enlarged central pulmonary arteries. Continue bronchodilators PRN IV antibiotics Incentive spirometry Send sputum for Gram stain and culture Monitor wbc Recommend to repeat CT chest in 6-8 weeks to assess for interval changes and ensure no underlying pathology. Pain control Avoid oversedation Monitor renal function. Monitor electrolytes. Supplement as necessary. Monitor ins and outs. Maintain euvolemia Smoking cessation discussed for greater than 10 minutes. Diet and lifestyle modifications for weight reduction Morbid obesity - complicates all care Accu-Cheks, ISS. GI prophylaxis - Pepcid DVT prophylaxis. Prognosis: Poor given patient's multiple co-morbidities. Rest of plan per hospitalist and other consultants. Thank you Dr. Antonietta Hopson MD, for allowing me to participate in this patient's care. Further recommendations will depend on the patient's clinical course. Please do not hesitate to contact me if you have any questions or concerns. This medical document was created using an electronic medical record system with [employer] dictation system. Although these documentations are being carefully reviewed, there may still be some phonetic and typographical changes. The errors are purely typographical, due to imperfection on the software program, and do not reflect any compromise in the patient's medical care. Plan discussed with: Patient, Other (ALYSSA Christiansen) NEVA MEREDITH MD Nov 04, 2024 23:09
[2024-11-05] VITALS (9 sets, daily range): BP systolic 130–147; BP diastolic 58–81; PULSE 52–70; RESP 17–22; TEMP 97.5–98.2; O2SAT 93–98
[2024-11-05] MEDS: METOCLOPRAMIDE HCL 5MG/ml INJ 2ml VIAL IV ONE (09:55)
[2024-11-05 10:57] LABS: Basophils # (auto) 0.1 10 ^3/uL (0-0.2); Basophils % (auto) 1.2 % (0.0-2.0); Eosinophils # (auto) 0.3 10 ^3/uL (0-0.8); Eosinophils % (auto) 2.4 % (0.0-7.0); Hematocrit 40.5 % (36.0-46.0); Hemoglobin 13.9 g/dL (12.2-16.2); Lymphocytes # (auto) 1.5 10 ^3/uL (0.4-5.4); Lymphocytes % (auto) 14.4 % (10.0-50.0); Mean Corpuscular Hemoglobin 31.4 pg (28.0-32.0); Mean Corpuscular Hgb Conc. 34.4 g/dL (32.0-36.0); Mean Corpuscular Volume 91.1 fL (80.0-100.0); Monocytes # (auto) 0.9 10 ^3/uL (0-1.3); Monocytes % (auto) 8.2 % (0.0-12.0); Neutrophils % (auto) 73.8 % (37.0-80.0); Nucleated Red Blood Cells % 0.2 %; Platelet Count (auto) 296 10^3/uL (140-450); Red Blood Cells 4.44 10^6/uL (4.0-5.20); Red Cell Distribution Width 15.8 % (11.8-14.3); White Blood Cell 10.8 10^3/uL (4.4-10.8)
[2024-11-05 11:22] LABS: Chloride 103 mmol/L (98-107); Sodium 137 mmol/L (136-145)
[2024-11-05 11:23] LABS: Anion Gap 7 (5-15); Carbon Dioxide 27 mmol/L (20-31)
[2024-11-05 11:24] LABS: Calcium 9.3 mg/dL (8.7-10.4)
[2024-11-05 11:29] LABS: BUN/Creatinine Ratio 13.6 (10.0-20.0)
[2024-11-05 11:47] LABS: Blood Urea Nitrogen 8 mg/dL (9-23); Glucose 198 mg/dL (74-106); Magnesium 1.5 mg/dL (1.6-2.6); Potassium 3.5 mmol/L (3.5-5.1)
--- NOTE | 2024-11-05 12:50 | DVHPNRES ---
Progress Note Date Seen: Nov 05, 2024 Resident Creating Document: VAUGHN VIRAMONTES RESIDENT Medical Necessity Reason Pt with a Central, PICC or Fol: No The following are medically ne: PICC Line Subjective Review of Systems Patient is 59 years old female with past medical history of coronary artery disease, hypertension, diabetes mellitus type 2, COPD, congestive heart failure, hyperlipidemia, morbid obesity came with a complaint of chest pain and shortness of breaths. As per patient patient started having chest pain 3 days before on Friday, sudden onset, central, radiating to the back and to the left arm, sharp in nature, 10/10, aggravated with movement, no relieving factor. Patient also endorsed some cough with blood noticed on Friday. Patient's chest pain was associated with some shortness of breath, patient also endorsed orthopnea and paroxysmal nocturnal dyspnea. Endorsed further inquiry patient also reported nausea but no vomiting. Patient also endorsed having 1 episode of diarrhea on Friday dark colored stool. On further inquiry patient reported that his legs swelling has been there for 1 year but is getting worse for last couple of days. Patient denied any fever, constipation, acute joint redness, dysarthria or change in vision. Initial lab workup revealed elevated blood pressure with 184/83, tachypnea with respiration rate 24. Initial lab workup revealed leukocytosis with WBC 14.4, D-dimer 0.83, HGB A1c 6.6, negative for troponin I, BNP 132.87, TSH elevated 18.24, serum alcohol 4.7, negative for COVID-19.. Urinalysis revealed leukocyte esterase trace, RBC 1, WBC 5, bacteria none. CXR revealed-Right upper lung zone consolidation. Diffuse bilateral interstitial opacities. Doppler study of the lower extremity negative for DVT. PMH- coronary artery disease, hypertension, diabetes mellitus type 2, COPD, congestive heart failure, hyperlipidemia, morbid obesity PSH- thyroidectomy, tonsillectomy, retinal surgery, bilateral knee replacement, history of coronary angiogram Allergy- penicillin, shellfish allergy Personal History/ Social History- patient denies smoking/alcoholism/drug abuse, lives with daughter Patient was seen today at the bedside. Cardiovascular- denes palpitation Respiratory- denies wheezing Gastrointestinal- denies any rectal bleeding, nausea or vomiting Musculoskeletal-denies acute joint swelling or tenderness or redness Neurological- denies acute dysarthria, dysphagia, change in vision Psychiatry- denies depression or SI or HI Patient was seen today for clinical evaluation. Labs and chart reviewed. Patient is still on NC O2 2 liter/minute as patient desaturates in room air. Plan is to keep SpO2 more than 92%. Patient isn't complaining of right-sided chest pain which is relieving to large pneumonia likely due to pleuritic pain. Patient tolerating IV antibiotic well, no side effect noted. Leukocytosis resolved. Objective vital signs Vital Sign Date Time Temp Pulse Resp B/P (MAP) Pulse Ox O2 Delivery O2 Flow Rate FiO2 11/05/24 09:00 97.5 55 17 130/58 (82) 93 97.5 11/05/24 00:31 2.0 28 11/04/24 23:08 Nasal Cannula* Total Intake and Output 11/04/24 11/04/24 11/05/24 15:00 23:00 07:00 Intake Total 550 ml 1295 ml 900 ml Output Total 600 ml 1100 ml Balance 550 ml 695 ml -200 ml medications Current Medications Medications Dose Ordered Sig/Heriberto Route Start Time Stop Time Status Last Admin Dose Admin Levothyroxine Sodium 150 mcg QAM@0600 PO 11/02/24 06:00 11/05/24 06:35 150 MCG Aspirin 81 mg DAILY PO 11/02/24 10:00 11/05/24 08:52 81 MG Atorvastatin Calcium 20 mg HS PO 11/01/24 22:00 11/03/24 21:34 20 MG Hydralazine HCl 10 mg Q6HP PRN IV 11/01/24 16:30 11/04/24 17:12 10 MG Gemfibrozil 600 mg DAILY PO 11/02/24 10:00 11/05/24 08:52 600 MG Diagnostic Test (Pha) 1 strip ACHS 11/01/24 17:00 11/05/24 11:58 1 STRIP Insulin Human Regular ACHS SC 11/01/24 17:00 11/05/24 12:01 4 UNITS Dextrose 50 ml UD PRN IV 11/01/24 16:30 Acetaminophen/ Hydrocodone Bitart 1 tab Q4HP PRN PO 11/01/24 16:30 11/04/24 03:14 1 TAB Ondansetron HCl 4 mg Q4HP PRN IV 11/01/24 16:30 11/02/24 09:54 4 MG Docusate Sodium 100 mg BIDPRN PRN PO 11/01/24 16:30 11/04/24 22:26 100 MG Morphine Sulfate 2 mg Q4HPRN PRN IV 11/01/24 16:30 Nitroglycerin 0.4 mg Q5MINP PRN SL 11/01/24 17:15 Morphine Sulfate 2 mg Q30M PRN IV 11/01/24 17:15 Doxycycline Hyclate 250 ml @ 125 mls/hr Q12H IV 11/01/24 17:45 11/05/24 04:10 125 MLS/HR Albuterol 2.5 mg Q6HPRN PRN NEB 11/02/24 00:15 11/04/24 07:17 2.5 MG Insulin Glargine 15 units QAM SC 11/03/24 07:00 11/05/24 07:04 15 UNITS Famotidine 20 mg Q12HR IV 11/02/24 10:00 11/05/24 09:55 20 MG Methadone HCl 55 mg DAILY PO 11/02/24 10:00 11/05/24 08:51 55 MG Sertraline HCl 50 mg DAILY PO 11/02/24 10:00 11/05/24 08:53 50 MG Acetaminophen 650 mg Q6HP PRN PO 11/02/24 12:00 Enoxaparin Sodium 40 mg DAILY SC 11/03/24 10:00 11/05/24 08:53 40 MG Meropenem 50 ml @ 17 mls/hr Q8HR IV 11/03/24 14:00 11/05/24 06:34 17 MLS/HR Amlodipine Besylate 10 mg DAILY PO 11/04/24 10:00 11/05/24 08:49 10 MG Ibuprofen 600 mg Q6HR PO 11/04/24 12:00 11/05/24 12:01 600 MG Examination General examination- awake, alert, oriented, 1% HEENT- PEERLA, no acute nasal discharge Cardiovascular- S1-S2 audible, rate and rhythm regular, no murmur Respiratory- CTAB, no wheeze or rhonchi Gastrointestinal-nontender, bowel sound+. Nondistended Musculoskeletal-no acute joint swelling or tenderness or redness# Lower extremity- bilateral leg edema++ Neurological- cranial nerves intact, no acute dysarthria or dysphagia Psychiatry- denies depression or SI or HI laboratory and microbiology Laboratory Tests 12/20/24 10:47 Test 11/05/24 10:47 Range/Units Serum Glucose 198 H 74-106 mg/dL Microbiology Date/Time Source Procedure Growth Status 11/03/24 18:50 Blood Blood Culture - Preliminary NO GROWTH AFTER 24 HOURS OF INCUBATION. Resulted Problem List/Assessment/Plan Problem List/Assessment/Plan #Acute hypoxic respiratory failure likely due to pneumonia, rule out pulmonary embolism # pneumonia Gram-positive versus Gram-negative # acute exacerbation of COPD likely due to pneumonia # rule out pulmonary embolism #Atelectasis #Pulmonary edema vs interstitial lung disease # diabetes mellitus type # congestive heart failure, no acute exacerbation # hypertension # hyperlipidemia # CAD # hypothyroidism # morbid obesity #Leukocytosis # hypokalemia replenished #Nicotine dependence #Morbid obesity CT angio chest revealed-No definite evidence of pulmonary embolism. Large consolidation in the right upper lobe may be of infectious etiology. Recommend close follow-up to resolution to exclude any underlying lesion. Enlarged central pulmonary arteries which may be sequelae of pulmonary arterial hypertension. Ordered pulmonary consult to rule out if patient needs any bronchoscopic Pending echo 2D report Ordered blood culture Discontinued antibiotic ceftriaxone on 11/03/2024 and ordered antibiotic meropenem for aggressive management and care Continue med ertapenem 1 g IV Q 8 H Continue doxycycline 100 mg IV b.i.d. Continue amlodipine 5 mg p.o. daily Continue levothyroxine as prescribed Continue sertraline for 50 mg p.o. daily Continue atorvastatin 20 mg q.h.s. Continue famotidine 20 mg IV b.i.d. Continue aspirin 81 mg p.o. daily Continue other p.r.n. medications Goals of care/advance care planning; FULL CODE; discussed with the patient >15 minutes PUD prophylaxis: Famotidine DVT prophylaxis: Lovenox Plan discussed with Dr. Hemphill, nursing staff, patient Total time spent on patient evaluation, chart review, assessment and plan, discussion discussion >30 minutes Plan discussed with: Patient Plan discussed with: Patient, Other (RN) My Orders My Orders Orders - VAUGHN VIRAMONTES Procedure Category Date Status Time Insert Midline ORDERS 11/04/24 Transmitted 17:43 Date of Service: Nov 05, 2024 Billing Provider: GINO HEMPHILL MD Common Visit Codes: [id number] INP/OBS CARE(HIGH) VAUGHN VIRAMONTES Nov 05, 2024 12:50 GINO HEMPHILL MD Nov 05, 2024 22:39
--- NOTE | 2024-11-05 22:25 | DVHPN2 ---
Progress Note - Dictate Date Seen: Nov 05, 2024 Medical Necessity Reason Pt with a Central, PICC or Fol: No The following are medically ne: PICC Line Subjective Patient seen and examined at bedside. Remains on supplemental oxygen Overnight events reviewed. vital signs Vital Sign Date Time Temp Pulse Resp B/P (MAP) Pulse Ox O2 Delivery O2 Flow Rate FiO2 11/05/24 21:00 98.1 58 22 147/81 (103) 97 98.1 11/05/24 10:30 Nasal Cannula 2.0 11/05/24 10:30 28 Total Intake and Output 11/04/24 11/04/24 11/05/24 15:00 23:00 07:00 Intake Total 550 ml 1295 ml 950 ml Output Total 600 ml 1100 ml Balance 550 ml 695 ml -150 ml medications Current Medications Medications Dose Ordered Sig/Heriberto Route Start Time Stop Time Status Last Admin Dose Admin Levothyroxine Sodium 150 mcg QAM@0600 PO 11/02/24 06:00 11/05/24 06:35 150 MCG Aspirin 81 mg DAILY PO 11/02/24 10:00 11/05/24 08:52 81 MG Atorvastatin Calcium 20 mg HS PO 11/01/24 22:00 11/05/24 21:21 20 MG Hydralazine HCl 10 mg Q6HP PRN IV 11/01/24 16:30 11/04/24 17:12 10 MG Gemfibrozil 600 mg DAILY PO 11/02/24 10:00 11/05/24 08:52 600 MG Diagnostic Test (Pha) 1 strip ACHS 11/01/24 17:00 11/05/24 21:22 1 STRIP Insulin Human Regular ACHS SC 11/01/24 17:00 11/05/24 17:27 4 UNITS Dextrose 50 ml UD PRN IV 11/01/24 16:30 Acetaminophen/ Hydrocodone Bitart 1 tab Q4HP PRN PO 11/01/24 16:30 11/04/24 03:14 1 TAB Ondansetron HCl 4 mg Q4HP PRN IV 11/01/24 16:30 11/02/24 09:54 4 MG Docusate Sodium 100 mg BIDPRN PRN PO 11/01/24 16:30 11/04/24 22:26 100 MG Morphine Sulfate 2 mg Q4HPRN PRN IV 11/01/24 16:30 Nitroglycerin 0.4 mg Q5MINP PRN SL 11/01/24 17:15 Morphine Sulfate 2 mg Q30M PRN IV 11/01/24 17:15 Doxycycline Hyclate 250 ml @ 125 mls/hr Q12H IV 11/01/24 17:45 11/05/24 17:15 125 MLS/HR Albuterol 2.5 mg Q6HPRN PRN NEB 11/02/24 00:15 11/04/24 07:17 2.5 MG Insulin Glargine 15 units QAM SC 11/03/24 07:00 11/05/24 07:04 15 UNITS Famotidine 20 mg Q12HR IV 11/02/24 10:00 11/05/24 21:21 20 MG Methadone HCl 55 mg DAILY PO 11/02/24 10:00 11/05/24 08:51 55 MG Sertraline HCl 50 mg DAILY PO 11/02/24 10:00 11/05/24 08:53 50 MG Acetaminophen 650 mg Q6HP PRN PO 11/02/24 12:00 Enoxaparin Sodium 40 mg DAILY SC 11/03/24 10:00 11/05/24 08:53 40 MG Meropenem 50 ml @ 17 mls/hr Q8HR IV 11/03/24 14:00 11/05/24 21:21 17 MLS/HR Amlodipine Besylate 10 mg DAILY PO 11/04/24 10:00 11/05/24 08:49 10 MG Ibuprofen 600 mg Q6HR PO 11/04/24 12:00 11/05/24 21:22 600 MG objective Gen.: Patient lying in bed in no apparent distress. On supplemental oxygen. Head: Normocephalic, atraumatic. Eyes: EOMI/PERRLA. Ears: Normal hearing. Normal anatomy. Neck/trachea: Trachea midline, supple. Nose: Normal external anatomy. Mouth: Moist mucous membranes. Chest: Decreased air entry bilaterally. No wheezing or rhonchi. Cardiovascular: Positive S1, positive S2. Regular rate and rhythm. Abdomen: Positive bowel sounds in all 4 quadrants. Soft, non-tender, non- distended. : Deferred. Rectal: Deferred. Skin: Warm, dry. Intact. Extremities: 2+ radial pulses bilaterally. No lower extremity edema. Neuro: Awake, alert, oriented x3. No gross motor or sensory deficits. Cranial nerves II through XII intact. Gait not assessed. laboratory and microbiology Laboratory Tests 11/05/24 10:47 Test 11/05/24 10:47 Range/Units Serum Glucose 198 H 74-106 mg/dL Assessment/Plan Impression: Acute hypoxic respiratory failure RUL pneumonia, likely gram negative Leucocytosis Atelectasis Pulmonary edema vs interstitial lung disease Nicotine dependence Morbid obesity Events: Remains on supplemental oxygen, 2 LPM NC Taper O2 as tolerated Continue bronchodilators Continue antibiotics d/t pneumonia - meropenem Incentive spirometry DVT prophylaxis Labs and imaging reviewed. Rest of plan as noted below. Plan: Supplemental oxygen Titrate to keep O2 sats above 92%. CXR on 11/01/24 demonstrates right upper lung zone consolidation. Diffuse bilateral interstitial opacities. CT angio on 11/02/24 shows no e/o pulmonary embolism. Large consolidation in RUL, likely pneumonia. Enlarged central pulmonary arteries. Continue bronchodilators PRN IV antibiotics Incentive spirometry Send sputum for Gram stain and culture Monitor wbc Recommend to repeat CT chest in 6-8 weeks to assess for interval changes and ensure no underlying pathology. Pain control Avoid oversedation Monitor renal function. Monitor electrolytes. Supplement as necessary. Monitor ins and outs. Maintain euvolemia Smoking cessation discussed for greater than 10 minutes. Diet and lifestyle modifications for weight reduction Morbid obesity - complicates all care Accu-Cheks, ISS. GI prophylaxis - Pepcid DVT prophylaxis. Prognosis: Poor given patient's multiple co-morbidities. Rest of plan per hospitalist and other consultants. Thank you Dr. Antonietta Hopson MD, for allowing me to participate in this patient's care. Further recommendations will depend on the patient's clinical course. Please do not hesitate to contact me if you have any questions or concerns. This medical document was created using an electronic medical record system with [employer] dictation system. Although these documentations are being carefully reviewed, there may still be some phonetic and typographical changes. The errors are purely typographical, due to imperfection on the software program, and do not reflect any compromise in the patient's medical care. Plan discussed with: Patient, Other (ALYSSA Christiansen) NEVA MEREDITH MD Nov 05, 2024 22:25
[2024-11-06] VITALS (11 sets, daily range): BP systolic 134–159; BP diastolic 61–88; PULSE 50–73; RESP 16–20; TEMP 97.5–98.6; O2SAT 91–98
[2024-11-06 07:19] LABS: Basophils # (auto) 0.1 10 ^3/uL (0-0.2); Basophils % (auto) 0.8 % (0.0-2.0); Eosinophils # (auto) 0.3 10 ^3/uL (0-0.8); Eosinophils % (auto) 2.6 % (0.0-7.0); Hematocrit 42.6 % (36.0-46.0); Hemoglobin 14.5 g/dL (12.2-16.2); Lymphocytes # (auto) 2.2 10 ^3/uL (0.4-5.4); Lymphocytes % (auto) 19.7 % (10.0-50.0); Mean Corpuscular Hemoglobin 31.8 pg (28.0-32.0); Mean Corpuscular Hgb Conc. 33.9 g/dL (32.0-36.0); Mean Corpuscular Volume 93.7 fL (80.0-100.0); Monocytes # (auto) 0.5 10 ^3/uL (0-1.3); Neutrophils # (auto) 7.9 10 ^3/uL (1.6-8.6); Neutrophils % (auto) 71.9 % (37.0-80.0); Nucleated Red Blood Cells % 0.2 %; Platelet Count (auto) 279 10^3/uL (140-450); Red Blood Cells 4.54 10^6/uL (4.0-5.20); Red Cell Distribution Width 15.7 % (11.8-14.3)
[2024-11-06 07:20] LABS: Anion Gap 11 (5-15); Calcium 9.7 mg/dL (8.7-10.4); Carbon Dioxide 24 mmol/L (20-31); Chloride 103 mmol/L (98-107); Sodium 138 mmol/L (136-145)
[2024-11-06 07:26] LABS: Magnesium 1.7 mg/dL (1.6-2.6)
[2024-11-06 07:27] LABS: Blood Urea Nitrogen 6 mg/dL (9-23); Glucose 195 mg/dL (74-106)
[2024-11-06] MEDS: hydrALAZINE HCL 20 MG/ML VL IV ONE (08:37)
[2024-11-06] MEDS: LACTULOSE 20Gm/30ML SOLN PO ONE (08:38)
--- NOTE | 2024-11-06 15:33 | DVHPNRES ---
Progress Note Date Seen: Nov 06, 2024 Resident Creating Document: RONALD CHI RESIDENT Medical Necessity Reason Pt with a Central, PICC or Fol: No The following are medically ne: PICC Line Subjective Review of Systems Patient is 59 years old female with past medical history of coronary artery disease, hypertension, diabetes mellitus type 2, COPD, congestive heart failure, hyperlipidemia, morbid obesity came with a complaint of chest pain and shortness of breaths. As per patient patient started having chest pain 3 days before on Friday, sudden onset, central, radiating to the back and to the left arm, sharp in nature, 10/10, aggravated with movement, no relieving factor. Patient also endorsed some cough with blood noticed on Friday. Patient's chest pain was associated with some shortness of breath, patient also endorsed orthopnea and paroxysmal nocturnal dyspnea. Endorsed further inquiry patient also reported nausea but no vomiting. Patient also endorsed having 1 episode of diarrhea on Friday dark colored stool. On further inquiry patient reported that his legs swelling has been there for 1 year but is getting worse for last couple of days. Patient denied any fever, constipation, acute joint redness, dysarthria or change in vision. Initial lab workup revealed elevated blood pressure with 184/83, tachypnea with respiration rate 24. Initial lab workup revealed leukocytosis with WBC 14.4, D-dimer 0.83, HGB A1c 6.6, negative for troponin I, BNP 132.87, TSH elevated 18.24, serum alcohol 4.7, negative for COVID-19.. Urinalysis revealed leukocyte esterase trace, RBC 1, WBC 5, bacteria none. CXR revealed-Right upper lung zone consolidation. Diffuse bilateral interstitial opacities. Doppler study of the lower extremity negative for DVT. PMH- coronary artery disease, hypertension, diabetes mellitus type 2, COPD, congestive heart failure, hyperlipidemia, morbid obesity PSH- thyroidectomy, tonsillectomy, retinal surgery, bilateral knee replacement, history of coronary angiogram Allergy- penicillin, shellfish allergy Personal History/ Social History- patient denies smoking/alcoholism/drug abuse, lives with daughter Patient was seen today at the bedside. Cardiovascular- denes palpitation Respiratory- denies wheezing Gastrointestinal- denies any rectal bleeding, nausea or vomiting Musculoskeletal-denies acute joint swelling or tenderness or redness Neurological- denies acute dysarthria, dysphagia, change in vision Psychiatry- denies depression or SI or HI Patient was seen today for clinical evaluation. Labs and chart reviewed. Patient is still on NC O2 2 liter/minute as patient desaturates in room air. Plan is to keep SpO2 more than 92%. Patient isn't complaining of right-sided chest pain which is relieving to large pneumonia likely due to pleuritic pain. Patient tolerating IV antibiotic well, no side effect noted. Leukocytosis , WBC:11 Objective vital signs Vital Sign Date Time Temp Pulse Resp B/P (MAP) Pulse Ox O2 Delivery O2 Flow Rate FiO2 11/06/24 13:00 97.5 59 16 144/63 (90) 95 97.5 11/06/24 10:17 Nasal Cannula 2.0 11/06/24 10:17 28 Total Intake and Output 11/05/24 11/05/24 11/06/24 15:00 23:00 07:00 Intake Total 50 ml 1070 ml 1050 ml Output Total 1500 ml Balance 50 ml 1070 ml -450 ml medications Current Medications Medications Dose Ordered Sig/Heriberto Route Start Time Stop Time Status Last Admin Dose Admin Levothyroxine Sodium 150 mcg QAM@0600 PO 11/02/24 06:00 11/06/24 06:19 150 MCG Aspirin 81 mg DAILY PO 11/02/24 10:00 11/06/24 09:48 81 MG Atorvastatin Calcium 20 mg HS PO 11/01/24 22:00 11/05/24 21:21 20 MG Hydralazine HCl 10 mg Q6HP PRN IV 11/01/24 16:30 11/04/24 17:12 10 MG Gemfibrozil 600 mg DAILY PO 11/02/24 10:00 11/06/24 09:48 600 MG Diagnostic Test (Pha) 1 strip ACHS 11/01/24 17:00 11/06/24 07:10 1 STRIP Insulin Human Regular ACHS SC 11/01/24 17:00 11/06/24 12:20 3 UNITS Dextrose 50 ml UD PRN IV 11/01/24 16:30 Acetaminophen/ Hydrocodone Bitart 1 tab Q4HP PRN PO 11/01/24 16:30 11/04/24 03:14 1 TAB Ondansetron HCl 4 mg Q4HP PRN IV 11/01/24 16:30 11/02/24 09:54 4 MG Docusate Sodium 100 mg BIDPRN PRN PO 11/01/24 16:30 11/04/24 22:26 100 MG Morphine Sulfate 2 mg Q4HPRN PRN IV 11/01/24 16:30 Nitroglycerin 0.4 mg Q5MINP PRN SL 11/01/24 17:15 Morphine Sulfate 2 mg Q30M PRN IV 11/01/24 17:15 Doxycycline Hyclate 250 ml @ 125 mls/hr Q12H IV 11/01/24 17:45 11/06/24 04:13 125 MLS/HR Albuterol 2.5 mg Q6HPRN PRN NEB 11/02/24 00:15 11/04/24 07:17 2.5 MG Insulin Glargine 15 units QAM SC 11/03/24 07:00 11/06/24 07:18 15 UNITS Famotidine 20 mg Q12HR IV 11/02/24 10:00 11/06/24 10:09 20 MG Methadone HCl 55 mg DAILY PO 11/02/24 10:00 11/06/24 09:51 55 MG Sertraline HCl 50 mg DAILY PO 11/02/24 10:00 11/06/24 09:48 50 MG Acetaminophen 650 mg Q6HP PRN PO 11/02/24 12:00 Enoxaparin Sodium 40 mg DAILY SC 11/03/24 10:00 11/06/24 09:48 40 MG Meropenem 50 ml @ 17 mls/hr Q8HR IV 11/03/24 14:00 11/06/24 15:10 17 MLS/HR Amlodipine Besylate 10 mg DAILY PO 11/04/24 10:00 11/06/24 09:49 10 MG Ibuprofen 600 mg Q6HR PO 11/04/24 12:00 11/06/24 07:10 600 MG Examination General examination- awake, alert, oriented, x3 HEENT- PEERLA, no acute nasal discharge Cardiovascular- S1-S2 audible, rate and rhythm regular, no murmur Respiratory- CTAB, no wheeze or rhonchi Gastrointestinal-nontender, bowel sound+. Nondistended Musculoskeletal-no acute joint swelling or tenderness or redness# Lower extremity- bilateral leg edema+ Neurological- cranial nerves intact, no acute dysarthria or dysphagia Psychiatry- denies depression or SI or HI laboratory and microbiology Laboratory Tests 11/06/24 06:18 Test 11/06/24 06:18 Range/Units Serum Glucose 195 H 74-106 mg/dL Microbiology Date/Time Source Procedure Growth Status 11/03/24 18:50 Blood Blood Culture - Preliminary NO GROWTH AFTER 48 HOURS OF INCUBATION. Resulted Problem List/Assessment/Plan Problem List/Assessment/Plan CT angio chest revealed-No definite evidence of pulmonary embolism. Large consolidation in the right upper lobe may be of infectious etiology. Recommend close follow-up to resolution to exclude any underlying lesion. Enlarged central pulmonary arteries which may be sequelae of pulmonary arterial hypertension. Ordered pulmonary consult to rule out if patient needs any bronchoscopic Pending echo 2D report Ordered blood culture Discontinued antibiotic ceftriaxone on 11/03/2024 and ordered antibiotic meropenem for aggressive management and care Continue med ertapenem 1 g IV Q 8 H Continue doxycycline 100 mg IV b.i.d. Continue amlodipine 5 mg p.o. daily Continue levothyroxine as prescribed Continue sertraline for 50 mg p.o. daily Continue atorvastatin 20 mg q.h.s. Continue famotidine 20 mg IV b.i.d. Continue aspirin 81 mg p.o. daily Continue other p.r.n. medications Goals of care/advance care planning; FULL CODE; discussed with the patient for 21 minutes Plan discussed with Dr. Hemphill, Plan discussed with: Patient Date of Service: Nov 06, 2024 Billing Provider: GINO HEMPHILL MD Common Visit Codes: [id number] INP/OBS CARE(HIGH) RONALD CHI RESIDENT Nov 06, 2024 15:33 GINO HEMPHILL MD Nov 08, 2024 17:27
--- NOTE | 2024-11-06 16:37 | DVHPN2 ---
Progress Note - Dictate Date Seen: Nov 06, 2024 Medical Necessity Reason Pt with a Central, PICC or Fol: No The following are medically ne: PICC Line Subjective Patient seen and examined at bedside. Remains on supplemental oxygen Overnight events reviewed. vital signs Vital Sign Date Time Temp Pulse Resp B/P (MAP) Pulse Ox O2 Delivery O2 Flow Rate FiO2 11/06/24 13:00 97.5 59 16 144/63 (90) 95 97.5 11/06/24 10:17 Nasal Cannula 2.0 11/06/24 10:17 28 Total Intake and Output 11/05/24 11/05/24 11/06/24 15:00 23:00 07:00 Intake Total 50 ml 1070 ml 1050 ml Output Total 1500 ml Balance 50 ml 1070 ml -450 ml medications Current Medications Medications Dose Ordered Sig/Heriberto Route Start Time Stop Time Status Last Admin Dose Admin Levothyroxine Sodium 150 mcg QAM@0600 PO 11/02/24 06:00 11/06/24 06:19 150 MCG Aspirin 81 mg DAILY PO 11/02/24 10:00 11/06/24 09:48 81 MG Atorvastatin Calcium 20 mg HS PO 11/01/24 22:00 11/05/24 21:21 20 MG Hydralazine HCl 10 mg Q6HP PRN IV 11/01/24 16:30 11/04/24 17:12 10 MG Gemfibrozil 600 mg DAILY PO 11/02/24 10:00 11/06/24 09:48 600 MG Diagnostic Test (Pha) 1 strip ACHS 11/01/24 17:00 11/06/24 07:10 1 STRIP Insulin Human Regular ACHS SC 11/01/24 17:00 11/06/24 12:20 3 UNITS Dextrose 50 ml UD PRN IV 11/01/24 16:30 Acetaminophen/ Hydrocodone Bitart 1 tab Q4HP PRN PO 11/01/24 16:30 11/04/24 03:14 1 TAB Ondansetron HCl 4 mg Q4HP PRN IV 11/01/24 16:30 11/02/24 09:54 4 MG Docusate Sodium 100 mg BIDPRN PRN PO 11/01/24 16:30 11/04/24 22:26 100 MG Morphine Sulfate 2 mg Q4HPRN PRN IV 11/01/24 16:30 Nitroglycerin 0.4 mg Q5MINP PRN SL 11/01/24 17:15 Morphine Sulfate 2 mg Q30M PRN IV 11/01/24 17:15 Doxycycline Hyclate 250 ml @ 125 mls/hr Q12H IV 11/01/24 17:45 11/06/24 04:13 125 MLS/HR Albuterol 2.5 mg Q6HPRN PRN NEB 11/02/24 00:15 11/04/24 07:17 2.5 MG Insulin Glargine 15 units QAM SC 11/03/24 07:00 11/06/24 07:18 15 UNITS Famotidine 20 mg Q12HR IV 11/02/24 10:00 11/06/24 10:09 20 MG Methadone HCl 55 mg DAILY PO 11/02/24 10:00 11/06/24 09:51 55 MG Sertraline HCl 50 mg DAILY PO 11/02/24 10:00 11/06/24 09:48 50 MG Acetaminophen 650 mg Q6HP PRN PO 11/02/24 12:00 Enoxaparin Sodium 40 mg DAILY SC 11/03/24 10:00 11/06/24 09:48 40 MG Meropenem 50 ml @ 17 mls/hr Q8HR IV 11/03/24 14:00 11/06/24 15:10 17 MLS/HR Amlodipine Besylate 10 mg DAILY PO 11/04/24 10:00 11/06/24 09:49 10 MG Ibuprofen 600 mg Q6HR PO 11/04/24 12:00 11/06/24 07:10 600 MG objective Gen.: Patient lying in bed in no apparent distress. On supplemental oxygen. Head: Normocephalic, atraumatic. Eyes: EOMI/PERRLA. Ears: Normal hearing. Normal anatomy. Neck/trachea: Trachea midline, supple. Nose: Normal external anatomy. Mouth: Moist mucous membranes. Chest: Decreased air entry bilaterally. No wheezing or rhonchi. Cardiovascular: Positive S1, positive S2. Regular rate and rhythm. Abdomen: Positive bowel sounds in all 4 quadrants. Soft, non-tender, non- distended. : Deferred. Rectal: Deferred. Skin: Warm, dry. Intact. Extremities: 2+ radial pulses bilaterally. No lower extremity edema. Neuro: Awake, alert, oriented x3. No gross motor or sensory deficits. Cranial nerves II through XII intact. Gait not assessed. laboratory and microbiology Laboratory Tests 11/06/24 06:18 Test 11/06/24 06:18 Range/Units Serum Glucose 195 H 74-106 mg/dL Assessment/Plan Impression: Acute hypoxic respiratory failure RUL pneumonia, likely gram negative Leucocytosis Atelectasis Pulmonary edema vs interstitial lung disease Nicotine dependence Morbid obesity Events: Remains on supplemental oxygen, 2 LPM NC Taper O2 as tolerated Continue bronchodilators Continue antibiotics Incentive spirometry Maintain euvolemia w/ Lasix Monitor renal function. Monitor electrolytes. Supplement as necessary. DVT prophylaxis Labs and imaging reviewed. Rest of plan as noted below. Plan: Supplemental oxygen Titrate to keep O2 sats above 92%. CXR on 11/01/24 demonstrates right upper lung zone consolidation. Diffuse bilateral interstitial opacities. CT angio on 11/02/24 shows no e/o pulmonary embolism. Large consolidation in RUL, likely pneumonia. Enlarged central pulmonary arteries. Continue bronchodilators PRN IV antibiotics Incentive spirometry Send sputum for Gram stain and culture Monitor wbc Recommend to repeat CT chest in 6-8 weeks to assess for interval changes and ensure no underlying pathology. Pain control Avoid oversedation Monitor renal function. Monitor electrolytes. Supplement as necessary. Monitor ins and outs. Maintain euvolemia Smoking cessation discussed for greater than 10 minutes. Diet and lifestyle modifications for weight reduction Morbid obesity - complicates all care Accu-Cheks, ISS. GI prophylaxis - Pepcid DVT prophylaxis. Prognosis: Poor given patient's multiple co-morbidities. Rest of plan per hospitalist and other consultants. Thank you Dr. Antonietta Hopson MD, for allowing me to participate in this patient's care. Further recommendations will depend on the patient's clinical course. Please do not hesitate to contact me if you have any questions or concerns. This medical document was created using an electronic medical record system with [employer] dictation system. Although these documentations are being carefully reviewed, there may still be some phonetic and typographical changes. The errors are purely typographical, due to imperfection on the software program, and do not reflect any compromise in the patient's medical care. Plan discussed with: Patient, Other (ALYSSA Green) NEVA MEREDITH MD Nov 06, 2024 16:37
[2024-11-07] VITALS (11 sets, daily range): BP systolic 137–180; BP diastolic 47–74; PULSE 47–60; RESP 16–19; TEMP 97.2–98.1; O2SAT 94–100
[2024-11-07 07:02] LABS: Hematocrit 41.7 % (36.0-46.0); Hemoglobin 13.8 g/dL (12.2-16.2); Mean Corpuscular Hemoglobin 30.2 pg (28.0-32.0); Mean Corpuscular Volume 91.6 fL (80.0-100.0); Platelet Count (auto) 359 10^3/uL (140-450); Red Blood Cells 4.55 10^6/uL (4.0-5.20); Red Cell Distribution Width 15.8 % (11.8-14.3); White Blood Cell 14.2 10^3/uL (4.4-10.8)
[2024-11-07 07:20] LABS: Anion Gap 8 (5-15); Band Neutrophils % (manual) 0; Basophils % (manual) 0 (0.0-2.0); Blast Cells 0; Carbon Dioxide 25 mmol/L (20-31); Chloride 104 mmol/L (98-107); Metamyelocytes % 0; Myelocytes % 0; Potassium 4.3 mmol/L (3.5-5.1); Promyelocytes % 0; Reactive Lymphocytes 0; Sodium 137 mmol/L (136-145)
[2024-11-07 07:21] LABS: Calcium 9.6 mg/dL (8.7-10.4)
[2024-11-07 07:26] LABS: BUN/Creatinine Ratio 9.5 (10.0-20.0)
[2024-11-07 07:35] LABS: Blood Urea Nitrogen 6 mg/dL (9-23); Glucose 154 mg/dL (74-106)
[2024-11-07 08:33] LABS: Eosinophils % (manual) 3 (0-7); Lymphocytes % (manual) 42 (10.0-50.0); Monocytes % (manual) 10 (0-12)
[2024-11-07 08:34] LABS: Platelet Estimate Adequate
[2024-11-07] MEDS ORDERED: IBUPROFEN 600 MG TAB PO PRN (11:15)
[2024-11-07] MEDS ORDERED: ACETAMINOPHEN 325 MG TAB PO PRN (11:15)
--- NOTE | 2024-11-07 15:09 | DVH ---
EXAM: XY CHEST XRAY 1 VIEW TECHNIQUE: Single frontal chest radiograph CLINICAL HISTORY: SOB COMPARISON: XY CHEST PORTABLE on DOS: 11/01/24 Findings/Impression: Frontal chest radiograph demonstrates no acute osseous or superficial soft tissue abnormalities. The trachea is midline. Cardiomegaly. Improved aeration of the right upper lung field with mild residual upper lung field opacity. No pneumothorax or pleural effusions.
--- NOTE | 2024-11-07 17:54 | DVHPNRES ---
Progress Note Date Seen: Nov 07, 2024 Resident Creating Document: VAUGHN VIRAMONTES RESIDENT Medical Necessity Reason Pt with a Central, PICC or Fol: No The following are medically ne: PICC Line Subjective Review of Systems Patient is 59 years old female with past medical history of coronary artery disease, hypertension, diabetes mellitus type 2, COPD, congestive heart failure, hyperlipidemia, morbid obesity came with a complaint of chest pain and shortness of breaths. As per patient patient started having chest pain 3 days before on Friday, sudden onset, central, radiating to the back and to the left arm, sharp in nature, 10/10, aggravated with movement, no relieving factor. Patient also endorsed some cough with blood noticed on Friday. Patient's chest pain was associated with some shortness of breath, patient also endorsed orthopnea and paroxysmal nocturnal dyspnea. Endorsed further inquiry patient also reported nausea but no vomiting. Patient also endorsed having 1 episode of diarrhea on Friday dark colored stool. On further inquiry patient reported that his legs swelling has been there for 1 year but is getting worse for last couple of days. Patient denied any fever, constipation, acute joint redness, dysarthria or change in vision. Initial lab workup revealed elevated blood pressure with 184/83, tachypnea with respiration rate 24. Initial lab workup revealed leukocytosis with WBC 14.4, D-dimer 0.83, HGB A1c 6.6, negative for troponin I, BNP 132.87, TSH elevated 18.24, serum alcohol 4.7, negative for COVID-19.. Urinalysis revealed leukocyte esterase trace, RBC 1, WBC 5, bacteria none. CXR revealed-Right upper lung zone consolidation. Diffuse bilateral interstitial opacities. Doppler study of the lower extremity negative for DVT. PMH- coronary artery disease, hypertension, diabetes mellitus type 2, COPD, congestive heart failure, hyperlipidemia, morbid obesity PSH- thyroidectomy, tonsillectomy, retinal surgery, bilateral knee replacement, history of coronary angiogram Allergy- penicillin, shellfish allergy Personal History/ Social History- patient denies smoking/alcoholism/drug abuse, lives with daughter Patient was seen today at the bedside. Cardiovascular- denes palpitation Respiratory- denies wheezing Gastrointestinal- denies any rectal bleeding, nausea or vomiting Musculoskeletal-denies acute joint swelling or tenderness or redness Neurological- denies acute dysarthria, dysphagia, change in vision Psychiatry- denies depression or SI or HI Patient was seen today for clinical evaluation. Labs and chart reviewed. Patient reports feeling better today. Patient still on IV antibiotic meropenem and doxycycline, tolerating well. Chest x-ray on 11/07/2024 revealed- Improved aeration of the right upper lung field with mild residual upper lung field opacity. Blood Culture negative for growth. Objective vital signs Vital Sign Date Time Temp Pulse Resp B/P (MAP) Pulse Ox O2 Delivery O2 Flow Rate FiO2 11/07/24 16:28 97.7 52 16 137/65 (89) 96 97.7 11/07/24 10:00 Nasal Cannula* 2 28 Total Intake and Output 11/06/24 11/06/24 11/07/24 15:00 23:00 07:00 Intake Total 880 ml 400 ml Output Total 1250 ml Balance 880 ml -850 ml medications Current Medications Medications Dose Ordered Sig/Heriberto Route Start Time Stop Time Status Last Admin Dose Admin Levothyroxine Sodium 150 mcg QAM@0600 PO 11/02/24 06:00 11/07/24 06:03 150 MCG Aspirin 81 mg DAILY PO 11/02/24 10:00 11/07/24 09:48 81 MG Atorvastatin Calcium 20 mg HS PO 11/01/24 22:00 11/06/24 21:55 20 MG Hydralazine HCl 10 mg Q6HP PRN IV 11/01/24 16:30 11/04/24 17:12 10 MG Gemfibrozil 600 mg DAILY PO 11/02/24 10:00 11/07/24 09:47 600 MG Diagnostic Test (Pha) 1 strip ACHS 11/01/24 17:00 11/07/24 11:10 1 STRIP Insulin Human Regular ACHS SC 11/01/24 17:00 11/07/24 11:06 3 UNITS Dextrose 50 ml UD PRN IV 11/01/24 16:30 Acetaminophen/ Hydrocodone Bitart 1 tab Q4HP PRN PO 11/01/24 16:30 11/04/24 03:14 1 TAB Ondansetron HCl 4 mg Q4HP PRN IV 11/01/24 16:30 11/02/24 09:54 4 MG Docusate Sodium 100 mg BIDPRN PRN PO 11/01/24 16:30 11/04/24 22:26 100 MG Morphine Sulfate 2 mg Q4HPRN PRN IV 11/01/24 16:30 Nitroglycerin 0.4 mg Q5MINP PRN SL 11/01/24 17:15 Morphine Sulfate 2 mg Q30M PRN IV 11/01/24 17:15 Doxycycline Hyclate 250 ml @ 125 mls/hr Q12H IV 11/01/24 17:45 11/07/24 04:25 125 MLS/HR Albuterol 2.5 mg Q6HPRN PRN NEB 11/02/24 00:15 11/04/24 07:17 2.5 MG Insulin Glargine 15 units QAM SC 11/03/24 07:00 11/07/24 06:19 15 UNITS Famotidine 20 mg Q12HR IV 11/02/24 10:00 11/07/24 11:05 20 MG Methadone HCl 55 mg DAILY PO 11/02/24 10:00 11/07/24 09:50 55 MG Sertraline HCl 50 mg DAILY PO 11/02/24 10:00 11/07/24 09:47 50 MG Enoxaparin Sodium 40 mg DAILY SC 11/03/24 10:00 11/07/24 09:47 40 MG Meropenem 50 ml @ 17 mls/hr Q8HR IV 11/03/24 14:00 11/07/24 14:55 17 MLS/HR Amlodipine Besylate 10 mg DAILY PO 11/04/24 10:00 11/07/24 09:49 10 MG Acetaminophen 650 mg Q6HP PRN PO 11/07/24 11:15 Ibuprofen 600 mg Q6HP PRN PO 11/07/24 11:15 Examination General examination- awake, alert, oriented, 1% HEENT- PEERLA, no acute nasal discharge Cardiovascular- S1-S2 audible, rate and rhythm regular, no murmur Respiratory- CTAB, no wheeze or rhonchi Gastrointestinal-nontender, bowel sound+. Nondistended Musculoskeletal-no acute joint swelling or tenderness or redness# Lower extremity- bilateral leg edema++ Neurological- cranial nerves intact, no acute dysarthria or dysphagia Psychiatry- denies depression or SI or HI laboratory and microbiology Laboratory Tests 11/07/24 06:28 Test 11/07/24 06:28 Range/Units Serum Glucose 154 H 74-106 mg/dL Microbiology Date/Time Source Procedure Growth Status 11/03/24 18:50 Blood Blood Culture - Preliminary NO GROWTH AFTER 72 HOURS OF INCUBATION. Resulted Problem List/Assessment/Plan Problem List/Assessment/Plan #Acute hypoxic respiratory failure likely due to pneumonia, rule out pulmonary embolism # pneumonia Gram-positive versus Gram-negative # acute exacerbation of COPD likely due to pneumonia # rule out pulmonary embolism #Atelectasis #Pulmonary edema vs interstitial lung disease # diabetes mellitus type # congestive heart failure, no acute exacerbation # hypertension # hyperlipidemia # CAD # hypothyroidism # morbid obesity #Leukocytosis # hypokalemia replenished #Nicotine dependence #Morbid obesity CT angio chest revealed-No definite evidence of pulmonary embolism. Large consolidation in the right upper lobe may be of infectious etiology. Recommend close follow-up to resolution to exclude any underlying lesion. Enlarged central pulmonary arteries which may be sequelae of pulmonary arterial hypertension. Ordered pulmonary consult to rule out if patient needs any bronchoscopic Pending echo 2D report Ordered blood culture Discontinued antibiotic ceftriaxone on 11/03/2024 and ordered antibiotic meropenem for aggressive management and care Continue meropenem 1 g IV Q 8 H Continue doxycycline 100 mg IV b.i.d. Continue amlodipine 5 mg p.o. daily Continue levothyroxine as prescribed Continue sertraline for 50 mg p.o. daily Continue atorvastatin 20 mg q.h.s. Continue famotidine 20 mg IV b.i.d. Continue aspirin 81 mg p.o. daily Continue other p.r.n. medications Goals of care/advance care planning; FULL CODE; discussed with the patient >15 minutes PUD prophylaxis: Famotidine DVT prophylaxis: Lovenox Plan discussed with Dr. Hemphill, nursing staff, patient Total time spent on patient evaluation, chart review, assessment and plan, discussion discussion >30 minutes Plan discussed with: Patient Plan discussed with: Patient, Other (RN) My Orders My Orders Orders - VAUGHN VIRAMONTES RESIDENT Procedure Category Date Status Time Respiratory Culture ELIZABETH 11/07/24 Logged W/ Gs 08:31 Acetaminophen Tablet PHA 11/07/24 In Process (Tylenol Tablet) 11:15 Ibuprofen Tablet PHA 11/07/24 In Process (Motrin Tablet) 11:15 Chest Xray 1 View XY 11/07/24 Resulted 12:09 Date of Service: Nov 07, 2024 Billing Provider: GINO HEMPHILL MD Common Visit Codes: [id number] INP/OBS CARE(MOD) VAUGHN VIRAMONTES RESIDENT Nov 07, 2024 17:54 GINO HEMPHILL MD Nov 08, 2024 17:28
[2024-11-07] MEDS: MAGNESIUM SULFATE 1GM/100ML 100 ML IV ONE (20:10)
--- NOTE | 2024-11-07 23:16 | DVHPN2 ---
Progress Note - Dictate Date Seen: Nov 07, 2024 Medical Necessity Reason Pt with a Central, PICC or Fol: No The following are medically ne: PICC Line Subjective Patient seen and examined at bedside. Remains on supplemental oxygen Overnight events reviewed. vital signs Vital Sign Date Time Temp Pulse Resp B/P (MAP) Pulse Ox O2 Delivery O2 Flow Rate FiO2 11/07/24 21:00 98.1 55 16 147/68 (94) 95 98.1 11/07/24 10:00 Nasal Cannula* 2 28 Total Intake and Output 11/06/24 11/06/24 11/07/24 15:00 23:00 07:00 Intake Total 1230 ml 400 ml Output Total 1250 ml Balance 1230 ml -850 ml medications Current Medications Medications Dose Ordered Sig/Heriberto Route Start Time Stop Time Status Last Admin Dose Admin Levothyroxine Sodium 150 mcg QAM@0600 PO 11/02/24 06:00 11/07/24 06:03 150 MCG Aspirin 81 mg DAILY PO 11/02/24 10:00 11/07/24 09:48 81 MG Atorvastatin Calcium 20 mg HS PO 11/01/24 22:00 11/07/24 22:32 20 MG Hydralazine HCl 10 mg Q6HP PRN IV 11/01/24 16:30 11/04/24 17:12 10 MG Gemfibrozil 600 mg DAILY PO 11/02/24 10:00 11/07/24 09:47 600 MG Diagnostic Test (Pha) 1 strip ACHS 11/01/24 17:00 11/07/24 22:00 1 STRIP Insulin Human Regular ACHS SC 11/01/24 17:00 11/07/24 22:39 3 UNITS Dextrose 50 ml UD PRN IV 11/01/24 16:30 Acetaminophen/ Hydrocodone Bitart 1 tab Q4HP PRN PO 11/01/24 16:30 11/04/24 03:14 1 TAB Ondansetron HCl 4 mg Q4HP PRN IV 11/01/24 16:30 11/02/24 09:54 4 MG Docusate Sodium 100 mg BIDPRN PRN PO 11/01/24 16:30 11/04/24 22:26 100 MG Morphine Sulfate 2 mg Q4HPRN PRN IV 11/01/24 16:30 Nitroglycerin 0.4 mg Q5MINP PRN SL 11/01/24 17:15 Morphine Sulfate 2 mg Q30M PRN IV 11/01/24 17:15 Doxycycline Hyclate 250 ml @ 125 mls/hr Q12H IV 11/01/24 17:45 11/07/24 17:46 125 MLS/HR Albuterol 2.5 mg Q6HPRN PRN NEB 11/02/24 00:15 11/04/24 07:17 2.5 MG Insulin Glargine 15 units QAM SC 11/03/24 07:00 11/07/24 06:19 15 UNITS Famotidine 20 mg Q12HR IV 11/02/24 10:00 11/07/24 22:32 20 MG Methadone HCl 55 mg DAILY PO 11/02/24 10:00 11/07/24 09:50 55 MG Sertraline HCl 50 mg DAILY PO 11/02/24 10:00 11/07/24 09:47 50 MG Enoxaparin Sodium 40 mg DAILY SC 11/03/24 10:00 11/07/24 09:47 40 MG Meropenem 50 ml @ 17 mls/hr Q8HR IV 11/03/24 14:00 11/07/24 14:55 17 MLS/HR Amlodipine Besylate 10 mg DAILY PO 11/04/24 10:00 11/07/24 09:49 10 MG Acetaminophen 650 mg Q6HP PRN PO 11/07/24 11:15 Ibuprofen 600 mg Q6HP PRN PO 11/07/24 11:15 objective Gen.: Patient lying in bed in no apparent distress. On supplemental oxygen. Head: Normocephalic, atraumatic. Eyes: EOMI/PERRLA. Ears: Normal hearing. Normal anatomy. Neck/trachea: Trachea midline, supple. Nose: Normal external anatomy. Mouth: Moist mucous membranes. Chest: Decreased air entry bilaterally. No wheezing or rhonchi. Cardiovascular: Positive S1, positive S2. Regular rate and rhythm. Abdomen: Positive bowel sounds in all 4 quadrants. Soft, non-tender, non- distended. : Deferred. Rectal: Deferred. Skin: Warm, dry. Intact. Extremities: 2+ radial pulses bilaterally. No lower extremity edema. Neuro: Awake, alert, oriented x3. No gross motor or sensory deficits. Cranial nerves II through XII intact. Gait not assessed. laboratory and microbiology Laboratory Tests 11/07/24 06:28 Test 11/07/24 06:28 Range/Units Serum Glucose 154 H 74-106 mg/dL Assessment/Plan Impression: Acute hypoxic respiratory failure RUL pneumonia, likely gram negative Leucocytosis Atelectasis Pulmonary edema vs interstitial lung disease Nicotine dependence Morbid obesity Events: Remains on supplemental oxygen, 2 LPM NC Taper O2 as tolerated Continue bronchodilators Continue antibiotics Incentive spirometry DVT prophylaxis Labs and imaging reviewed. Rest of plan as noted below. Plan: Supplemental oxygen Titrate to keep O2 sats above 92%. CXR on 11/01/24 demonstrates right upper lung zone consolidation. Diffuse bilateral interstitial opacities. CT angio on 11/02/24 shows no e/o pulmonary embolism. Large consolidation in RUL, likely pneumonia. Enlarged central pulmonary arteries. Continue bronchodilators PRN IV antibiotics Incentive spirometry Send sputum for Gram stain and culture Monitor wbc Recommend to repeat CT chest in 6-8 weeks to assess for interval changes and ensure no underlying pathology. Pain control Avoid oversedation Monitor renal function. Monitor electrolytes. Supplement as necessary. Monitor ins and outs. Maintain euvolemia Smoking cessation discussed for greater than 10 minutes. Diet and lifestyle modifications for weight reduction Morbid obesity - complicates all care Accu-Cheks, ISS. GI prophylaxis - Pepcid DVT prophylaxis. Prognosis: Poor given patient's multiple co-morbidities. Rest of plan per hospitalist and other consultants. Thank you Dr. Antonietta Hopson MD, for allowing me to participate in this patient's care. Further recommendations will depend on the patient's clinical course. Please do not hesitate to contact me if you have any questions or concerns. This medical document was created using an electronic medical record system with [employer] dictation system. Although these documentations are being carefully reviewed, there may still be some phonetic and typographical changes. The errors are purely typographical, due to imperfection on the software program, and do not reflect any compromise in the patient's medical care. Plan discussed with: Patient, Other (ALYSSA Ley) NEVA MEREDITH MD Nov 07, 2024 23:16
[2024-11-08] VITALS (7 sets, daily range): BP systolic 129–155; BP diastolic 51–93; PULSE 50–66; RESP 16–20; TEMP 97.4–97.5; O2SAT 89–96
[2024-11-08] MEDS: IBUPROFEN 600 MG TAB PO PRN (03:56)
[2024-11-08] MEDS ORDERED: LEVO750T40 PO (09:47)
[2024-11-08] MEDS ORDERED: DOXY1CAP57 PO (09:47)
--- NOTE | 2024-11-08 14:32 | DVHDSRES ---
Discharge Summary Date of Admission Resident Creating Document: VAUGHN VIRAMONTES Nov 01, 2024 at 17:11 Date of Discharge: Nov 03, 2024 Admitting Diagnosis Shortness of breaths likely due to pneumonia Labs/Diagnostic Data: Laboratory Results Test 11/08/24 06:00 11/07/24 06:28 11/06/24 06:18 11/04/24 06:47 POC Glucose 169 mg/dl (70-106) White Blood Count 14.2 10^3/uL (4.4-10.8) Red Blood Count 4.55 10^6/uL (4.0-5.20) Hemoglobin 13.8 g/dL (12.2-16.2) Hematocrit 41.7 % (36.0-46.0) Mean Corpuscular Volume 91.6 fL (80.0-100.0) Mean Corpuscular Hemoglobin 30.2 pg (28.0-32.0) Mean Corpuscular Hemoglobin Concent 33.0 g/dL (32.0-36.0) Red Cell Distribution Width 15.8 % (11.8-14.3) Platelet Count 359 10^3/uL (140-450) Mean Platelet Volume 7.8 fL (6.9-10.8) Neutrophils (%) (Auto) % (37.0-80.0) Lymphocytes (%) (Auto) % (10.0-50.0) Monocytes (%) (Auto) % (0.0-12.0) Basophils (%) (Auto) % (0.0-2.0) Neutrophils # (Auto) 10 ^3/uL (1.6-8.6) Lymphocytes # (Auto) 10 ^3/uL (0.4-5.4) Monocytes # (Auto) 10 ^3/uL (0-1.3) Differential Total Cells Counted 100.0 (100) Neutrophils % (Manual) 45 (37.0-80.0) Band Neutrophils % (Manual) 0 Lymphocytes % (Manual) 42 (10.0-50.0) Monocytes % (Manual) 10 (0-12) Eosinophils % (Manual) 3 (0-7) Basophils % (Manual) 0 (0.0-2.0) Metamyelocytes % (manual) 0 Myelocytes % (Manual) 0 Promyelocytes % (Manual) 0 Blast Cells % (Manual) 0 Reactive Lymphocytes 0 Platelet Estimate Adequate Sodium Level 137 mmol/L (136-145) Potassium Level 4.3 mmol/L (3.5-5.1) Chloride Level 104 mmol/L (98-107) Carbon Dioxide Level 25 mmol/L (20-31) Anion Gap 8 (5-15) Blood Urea Nitrogen 6 mg/dL (9-23) Creatinine 0.63 mg/dL (0.550-1.02) Glomerular Filtration Rate Calc 101 mL/min (>90) BUN/Creatinine Ratio 9.5 (10.0-20.0) Serum Glucose 154 mg/dL (74-106) Calcium Level 9.6 mg/dL (8.7-10.4) Eosinophils (%) (Auto) 2.6 % (0.0-7.0) Eosinophils # (Auto) 0.3 10 ^3/uL (0-0.8) Basophils # (Auto) 0.1 10 ^3/uL (0-0.2) Nucleated Red Blood Cells 0.2 % Magnesium Level 1.7 mg/dL (1.6-2.6) Triglycerides Level 147 mg/dL (< 150) Cholesterol Level 173 mg/dL (< 200) LDL Cholesterol 107 mg/dL (< 100) HDL Cholesterol 46 mg/dL (40-59) Test 11/03/24 11:15 11/02/24 11:50 11/02/24 00:30 11/01/24 22:42 Total Bilirubin 0.3 mg/dL (0.2-1.0) Aspartate Amino Transferase (AST) 12 U/L (13-40) Alanine Aminotransferase (ALT) 10 U/L (7-40) Alkaline Phosphatase 83 U/L (46-116) Total Protein 6.7 g/dL (5.7-8.2) Albumin 4.0 g/dL (3.2-4.8) Lipase 30 U/L (12-53) Clumped Platelets None D-Dimer, Quantitative 0.83 mg/L FEU (0.0-0.49) Lactic Acid Level 1.9 mmol/L (0.4-2.0) Phosphorus Level 2.7 mg/dL (2.4-5.1) B-Type Natriuretic Peptide 132.87 pg/mL (0-100) Free Thyroxine (T4) Calculated 0.73 ng/dL (0.89-1.76) Free Triiodothyronine (T3) pg/mL 1.41 pg/mL (2.3-4.2) Plasma/Serum Blood Alcohol 4.7 mg/dL (<10) Urine Color Light-yellow (Yellow) Urine Clarity Clear (Clear) Urine pH 7.5 (5.0-9.0) Urine Specific [place] 1.015 (1.001-1.035) Urine Protein Negative (Negative) Urine Ketones Negative (Negative) Urine Blood Negative /uL (Negative) Urine Nitrite Negative (Negative) Urine Bilirubin Negative (Negative) Urine Urobilinogen Normal mg/dL (Negative) Urine Leukocyte Esterase Trace /uL (Negative) Urine RBC 1 /hpf (0 - 4) Urine WBC 5 /hpf (0 - 5) Urine Squamous Epithelial Cells Few /hpf (<5) Urine Bacteria None seen /hpf (None Seen) Urine Glucose Normal mg/dL (Normal) SARS-CoV-2 Antigen (Rapid) Negative (NEGATIVE) Test 11/01/24 14:06 11/01/24 12:54 Troponin I High Sensitivity 6 ng/L (</=34) Hemoglobin A1c 6.6 % A1C (<5.7) Thyroid Stimulating Hormone (TSH) 18.24 uIU/mL (0.55-4.78) Other Laboratory Tests 11/07/24 06:28 Brief Hx & Hospital Course: Patient is 59 years old female with past medical history of coronary artery disease, hypertension, diabetes mellitus type 2, COPD, congestive heart failure, hyperlipidemia, morbid obesity came with a complaint of chest pain and shortness of breaths. As per patient patient started having chest pain 3 days before on Friday, sudden onset, central, radiating to the back and to the left arm, sharp in nature, 10/10, aggravated with movement, no relieving factor. Patient also endorsed some cough with blood noticed on Friday. Patient's chest pain was associated with some shortness of breath, patient also endorsed orthopnea and paroxysmal nocturnal dyspnea. Endorsed further inquiry patient also reported nausea but no vomiting. Patient also endorsed having 1 episode of diarrhea on Friday dark colored stool. On further inquiry patient reported that his legs swelling has been there for 1 year but is getting worse for last couple of days. Patient denied any fever, constipation, acute joint redness, dysarthria or change in vision. Initial lab workup revealed elevated blood pressure with 184/83, tachypnea with respiration rate 24. Initial lab workup revealed leukocytosis with WBC 14.4, D-dimer 0.83, HGB A1c 6.6, negative for troponin I, BNP 132.87, TSH elevated 18.24, serum alcohol 4.7, negative for COVID-19.. Urinalysis revealed leukocyte esterase trace, RBC 1, WBC 5, bacteria none. CXR revealed-Right upper lung zone consolidation. Diffuse bilateral interstitial opacities. Doppler study of the lower extremity negative for DVT. CT angio-No definite evidence of pulmonary embolism. Large consolidation in the right upper lobe may be of infectious etiology. Recommend close follow-up to resolution to exclude any underlying lesion.Enlarged central pulmonary arteries which may be sequelae of pulmonary arterial hypertension. During hospitalization patient was treated with IV antibiotic meropenem and doxycycline. Patient was also seen by ems instructor. Patient's symptom improved clinically with conservative management. Blood culture was negative for any growth. CT angio ruled out pulmonary embolism. Patient's symptom improved clinically with the conservative management. Doppler study of the lower extremity ruled out DVT. Patient's symptom improved clinically . Patient is being discharged home with oral antibiotic levofloxacin 750 mg p.o. daily for 5 days and doxycycline 100 mg p.o. b.i.d. for 5 days. Patient's meds were sent to the pharmacy electronically. Patient was advised to follow up with the primary care physician in 1 week. Patient verbalized understanding. Patient was hemodynamically stable on discharge PMH- coronary artery disease, hypertension, diabetes mellitus type 2, COPD, congestive heart failure, hyperlipidemia, morbid obesity PSH- thyroidectomy, tonsillectomy, retinal surgery, bilateral knee replacement, history of coronary angiogram Allergy- penicillin, shellfish allergy Personal History/ Social History- patient denies smoking/alcoholism/drug abuse, lives with daughter Patient was seen today at the bedside. Cardiovascular- denes palpitation Respiratory- denies wheezing Gastrointestinal- denies any rectal bleeding, nausea or vomiting Musculoskeletal-denies acute joint swelling or tenderness or redness Neurological- denies acute dysarthria, dysphagia, change in vision Psychiatry- denies depression or SI or HI General examination- awake, alert, oriented, 1% HEENT- PEERLA, no acute nasal discharge Cardiovascular- S1-S2 audible, rate and rhythm regular, no murmur Respiratory- CTAB, no wheeze or rhonchi Gastrointestinal-nontender, bowel sound+. Nondistended Musculoskeletal-no acute joint swelling or tenderness or redness# Lower extremity- bilateral leg edema++ Neurological- cranial nerves intact, no acute dysarthria or dysphagia Psychiatry- denies depression or SI or HI Operations or Procedures DIAGNOSTIC IMAGING Diagnostic Imaging Report : [id number] Signed PATIENT: LUIS AYOUB ACCT: [id number] UNIT: [id number] : 1965 LOC: ER ROOM / BED: / AGE / SEX: 59 / F ADM STATUS: REG ER SERVICE 1212 ORDERING PHYSICIAN: TERESA CAGLE MD PROCEDURE(s): CXRP - CHEST PORTABLE REASON: cp ORDER NUMBER(s): [id number], ACCESSION NUMBER(s): [id number] CHEST RADIOGRAPH Indication: cp Technique: Single frontal view of the chest was obtained Comparison: None FINDINGS: Lines and Tubes: None Lungs: Upper lung zone consolidation. Diffuse bilateral interstitial opacities. Pleura: No effusion. No pneumothorax. Cardiomediastinal contours: Unremarkable Bones: No acute osseous abnormality. IMPRESSION: 1. Right upper lung zone consolidation. Diffuse bilateral interstitial opacities. HS:Y ATED BY: PAMELA CALVO DO DICTATED DATE/TIME: 11/01/24 1323 SIGNED BY: PAMLEA CALVO DO SIGNED DATE/TIME: 11/01/24 1323 CC: DIAGNOSTIC IMAGING Diagnostic Imaging Report : [id number] Signed PATIENT: LUIS AYOUB ACCT: [id number] UNIT: [id number] : 1965 LOC: TELE-E-ADS ROOM / BED: 0244ADST / 2 AGE / SEX: 59 / F ADM STATUS: ADM IN SERVICE 1147 ORDERING PHYSICIAN: VAUGHN VIRAMONTES PROCEDURE(s): CTACH - CT ANGIO CHEST CONTRAST REASON: SOB, HEMOPTYSIS ORDER NUMBER(s): [id number], ACCESSION NUMBER(s): [id number] CT ANGIOGRAM CHEST WITH CONTRAST FOR PULMONARY EMBOLUS CLINICAL HISTORY: SOB, HEMOPTYSIS TECHNIQUE: Helical axial scans of the chest during dynamic intravenous contrast injection. Pulmonary embolism protocol. Multiplanar reformats. Postprocessing MIP images. One or more of the following radiation dose reduction techniques were used for this examination: automated exposure control, adjustment of the mA and/or kV according to patient size, use of iterative reconstruction technique. COMPARISON: Chest x-ray 11/01/2024 FINDINGS: Pulmonary arteries: There is adequate enhancement of the pulmonary arterial system to the proximal segmental level, however, respiratory motion artifact somewhat limits evaluation. As visualized no definite pulmonary arterial filling defects are evident. Main pulmonary artery measures approximately 4.2 cm in diameter. Left and right pulmonary arteries measure approximately 3.1 cm in diameter. This may be sequelae of pulmonary arterial hypertension. Mediastinum: Heart is mildly enlarged. Coronary artery calcifications. No mediastinal adenopathy. No sizable pericardial effusion. Lung parenchyma: Large area of dense consolidation in the right upper lobe. Atelectasis/ scarring in the lung bases. Pleura: No sizable pleural effusion or pneumothorax. Chest wall and axillae: No appreciable axillary adenopathy. Upper abdomen: No acute findings as visualized. IMPRESSION: No definite evidence of pulmonary embolism. Large consolidation in the right upper lobe may be of infectious etiology. Recommend close follow-up to resolution to exclude any underlying lesion. Enlarged central pulmonary arteries which may be sequelae of pulmonary arterial hypertension. ATED BY: BRIGHT KAUFFMAN MD DICTATED DATE/TIME: 11/02/241929 SIGNED BY: BRIGHT KAUFFMAN MD SIGNED DATE/TIME: 11/02/241929 CC: Diagnostic Imaging Report : [id number] Signed PATIENT: LUIS AYOUB ACCT: [id number] UNIT: [id number] : 1965 LOC: TELE-E-ADS ROOM / BED: 0244ADST / 2 AGE / SEX: 59 / F ADM STATUS: ADM IN SERVICE 1147 ORDERING PHYSICIAN: VAUGHN VIRAMONTES RESIDENT PROCEDURE(s): BLDVT - BiLat Lower DVT REASON: ?DVT ORDER NUMBER(s): [id number], ACCESSION NUMBER(s): [id number] Bilateral lower extremity venous duplex Clinical History: DVT Comparison: None Technique: Duplex Doppler evaluation of the deep venous systems of both lower extremities from the common femoral veins to the popliteal veins including color Doppler and spectral/pulsed waveform analysis was performed. Findings: RIGHT SIDE: The common femoral vein demonstrates appropriate compressibility and waveform variability. There is compressibility/patency of the great saphenous vein at the proximal thigh. The femoral vein demonstrates appropriate compressibility and waveform variability. The deep femoral vein demonstrates appropriate compressibility and waveform variability. The popliteal vein demonstrates appropriate compressibility and waveform variability. There is normal compressibility at the tibioperoneal trunk. LEFT SIDE: The common femoral vein demonstrates appropriate compressibility and waveform variability. There is compressibility/patency of the great saphenous vein at the proximal thigh. The femoral vein demonstrates appropriate compressibility and waveform variability. The deep femoral vein demonstrates appropriate compressibility and waveform variability. The popliteal vein demonstrates appropriate compressibility and waveform variability. There is normal compressibility at the tibioperoneal trunk. Impression: 1. No right or left femoropopliteal venous thrombosis. HS:Y ATED BY: PAMELA CALVO DO DICTATED DATE/TIME: 11/02/24 1302 SIGNED BY: PAMELA CALVO DO SIGNED DATE/TIME: 11/02/24 1302 CC: Ph: [phone] DIAGNOSTIC IMAGING Diagnostic Imaging Report : [id number] Signed PATIENT: LUIS AYOUB ACCT: [id number] UNIT: [id number] : 1965 LOC: TELE-E-ADS ROOM / BED: [address] [place] [address] AGE / SEX: 59 / F ADM STATUS: ADM IN SERVICE 0712 ORDERING PHYSICIAN: VAUGHN VIRAMONTES RESIDENT PROCEDURE(s): ABDL - ABDOMEN LIMITED REASON: ABDOMINAL PAIN ORDER NUMBER(s): [id number], ACCESSION NUMBER(s): [id number] INDICATION: ABDOMINAL PAIN TECHNIQUE: Multiple real-time sonographic images of the abdomen were obtained. COMPARISON: None FINDINGS: The liver is increased in echogenicity. The liver measures 25.3 cm. No intrahepatic biliary ductal dilatation is noted. The gallbladder wall measures 0.3 cm and is unremarkable. No gallstones or sludge is seen. The common duct measures 1.3 cm and is dilated. No filling defects. No pericholecystic fluid is noted. Negative sonographic benitez's sign. The right kidney measures 12.3 cm. No hydronephrosis. The pancreas is not well visualized due to obscuration from bowel gas. The visualized portions of the IVC and aorta are grossly unremarkable. IMPRESSION: 1. Hepatic steatosis and hepatomegaly. 2. Dilated common bile duct without filling defect. The gallbladder is not distended. Negative sonographic benitez's sign. Dilated common bile duct is of uncertain etiology. MRI of the abdomen with MRCP may be obtained for further evaluation if clinically warranted. ATED BY: BECKY BARROW MD DICTATED DATE/TIME: 11/03/24758 SIGNED BY: BECKY BARROW MD SIGNED DATE/TIME: 11/03/24758 CC: DIAGNOSTIC IMAGING Diagnostic Imaging Report : [id number] Signed PATIENT: LUIS AYOUB ACCT: [id number] UNIT: [id number] : 1965 LOC: TELE-E-ADS ROOM / BED: 0244ADST / 2 AGE / SEX: 59 / F ADM STATUS: ADM IN SERVICE 120 ORDERING PHYSICIAN: VAUGHN VIRAMONTES RESIDENT PROCEDURE(s): CXR1 - CHEST XRAY 1 VIEW REASON: SOB ORDER NUMBER(s): [id number], ACCESSION NUMBER(s): [id number] EXAM: XY CHEST XRAY 1 VIEW TECHNIQUE: Single frontal chest radiograph CLINICAL HISTORY: SOB COMPARISON: XY CHEST PORTABLE on DOS: 11/01/24 Findings/Impression: Frontal chest radiograph demonstrates no acute osseous or superficial soft tissue abnormalities. The trachea is midline. Cardiomegaly. Improved aeration of the right upper lung field with mild residual upper lung field opacity. No pneumothorax or pleural effusions. ATED BY: ANTONINA JURADO DO DICTATED DATE/TIME: 11/07/24 1507 SIGNED BY: ANTONINA JURADO DO SIGNED DATE/TIME: 11/07/24 1502 CC: Condition at Discharge: Stable Final Diagnosis/Problems List #Acute hypoxic respiratory failure likely due to pneumonia, rule out pulmonary embolism # pneumonia Gram-positive versus Gram-negative # acute exacerbation of COPD likely due to pneumonia # rule out pulmonary embolism #Atelectasis #Pulmonary edema vs interstitial lung disease # diabetes mellitus type # congestive heart failure, no acute exacerbation # hypertension # hyperlipidemia # CAD # hypothyroidism # morbid obesity #Leukocytosis # hypokalemia replenished #Nicotine dependence #Morbid obesity Discharge Disposition: Home Discharge Instruct/Medications Diet: Cardiac 2g Na,low cholest Activity: Light activity Medications: levofloxacin Discharge Statement: "Patient was advised to return to the ER or call 911 if any headaches, dizziness, shortness of breath, chest pain, abdominal pain, bleeding, fevers, or worsening of medical condition. Patient was counseled about treatment plan, medications, possible side effects, patientverbalized understanding. All questions were answered to the best of my ability. This discharge took greater then 30 minutes in planning, reviewing documentation, counseling the patient, and discussing with other team members." ASSESSMENT ASSESSMENT Assessment #Acute hypoxic respiratory failure likely due to pneumonia, rule out pulmonary embolism # pneumonia Gram-positive versus Gram-negative # acute exacerbation of COPD likely due to pneumonia # rule out pulmonary embolism #Atelectasis #Pulmonary edema vs interstitial lung disease # diabetes mellitus type # congestive heart failure, no acute exacerbation # hypertension # hyperlipidemia # CAD # hypothyroidism # morbid obesity #Leukocytosis # hypokalemia replenished #Nicotine dependence #Morbid obesity Date of Service: Nov 08, 2024 Billing Provider: GINO NATION MD Common Visit Codes: 04633-TVQ/OBS DISCH DAY >30min VAUGHN VIRAMONTES Nov 08, 2024 14:32 GINO NATION MD Nov 08, 2024 17:28
--- NOTE | 2024-11-08 23:08 | DVHPN2 ---
Progress Note - Dictate Date Seen: Nov 08, 2024 Medical Necessity Reason Pt with a Central, PICC or Fol: No The following are medically ne: PICC Line Subjective Patient seen and examined at bedside. Breathing comfortably on room air Overnight events reviewed. vital signs Vital Sign Date Time Temp Pulse Resp B/P (MAP) Pulse Ox O2 Delivery O2 Flow Rate FiO2 11/08/24 13:00 97.5 52 18 141/61 (87) 93 97.5 11/08/24 11:33 Room Air* 0 21 Total Intake and Output 11/07/24 11/07/24 11/08/24 15:00 23:00 07:00 Intake Total 50 ml 1100 ml 400 ml Output Total 2000 ml Balance 50 ml -900 ml 400 ml objective Gen.: Patient lying in bed in no apparent distress. On room air. Head: Normocephalic, atraumatic. Eyes: EOMI/PERRLA. Ears: Normal hearing. Normal anatomy. Neck/trachea: Trachea midline, supple. Nose: Normal external anatomy. Mouth: Moist mucous membranes. Chest: Decreased air entry bilaterally. No wheezing or rhonchi. Cardiovascular: Positive S1, positive S2. Regular rate and rhythm. Abdomen: Positive bowel sounds in all 4 quadrants. Soft, non-tender, non- distended. : Deferred. Rectal: Deferred. Skin: Warm, dry. Intact. Extremities: 2+ radial pulses bilaterally. No lower extremity edema. Neuro: Awake, alert, oriented x3. No gross motor or sensory deficits. Cranial nerves II through XII intact. Gait not assessed. laboratory and microbiology Laboratory Tests 11/07/24 06:28 Test 11/07/24 06:28 Range/Units Serum Glucose 154 H 74-106 mg/dL Assessment/Plan Impression: Acute hypoxic respiratory failure RUL pneumonia, likely gram negative Leucocytosis Atelectasis Pulmonary edema vs interstitial lung disease Nicotine dependence Morbid obesity Events: Breathing on room air Supplemental oxygen PRN Continue bronchodilators Continue antibiotics Incentive spirometry Patient is stable for discharge from the pulmonary standpoint. Disposition per hospitalist. Follow up in 1-2 weeks in Pulmonary Clinic. Labs and imaging reviewed. Rest of plan as noted below. Plan: Supplemental oxygen PRN Titrate to keep O2 sats above 92%. CXR on 11/01/24 demonstrates right upper lung zone consolidation. Diffuse bilateral interstitial opacities. CT angio on 11/02/24 shows no e/o pulmonary embolism. Large consolidation in RUL, likely pneumonia. Enlarged central pulmonary arteries. Continue bronchodilators PRN IV antibiotics Incentive spirometry Send sputum for Gram stain and culture Monitor wbc Recommend to repeat CT chest in 6-8 weeks to assess for interval changes and ensure no underlying pathology. Pain control Avoid oversedation Monitor renal function. Monitor electrolytes. Supplement as necessary. Monitor ins and outs. Maintain euvolemia Smoking cessation discussed for greater than 10 minutes. Diet and lifestyle modifications for weight reduction Morbid obesity - complicates all care Accu-Cheks, ISS. GI prophylaxis - Pepcid DVT prophylaxis. Prognosis: Poor given patient's multiple co-morbidities. Rest of plan per hospitalist and other consultants. Thank you Dr. Antonietta Hopson MD, for allowing me to participate in this patient's care. Further recommendations will depend on the patient's clinical course. Please do not hesitate to contact me if you have any questions or concerns. This medical document was created using an electronic medical record system with [employer] computerized dictation system. Although these documentations are being carefully reviewed, there may still be some phonetic and typographical changes. The errors are purely typographical, due to imperfection on the software program, and do not reflect any compromise in the patient's medical care. Plan discussed with: Patient, Other (ALYSSA Fisher) NEVA MEREDITH MD Nov 08, 2024 23:08
== END 2024-11-08 16:54 | disposition home or self-care (01) | DRG 133 ==
LOC: EDBD 12:06 → ER 12:06 → TELE 17:11 → TELE-E-ADS 17:14
PROVIDERS: ADMIT Internal Medicine Geriatric Medicine; ATTEND Emergency Medicine
PROC: 05HF33Z Insertion of Infusion Device into Left Cephalic Vein, Percutaneous Approach (ICD-10-PCS; principal; 2024-11-04)
PROC: B54NZZA Ultrasonography of Left Upper Extremity Veins, Guidance (ICD-10-PCS; 2024-11-04)
DX: J96.01 Acute respiratory failure with hypoxia (principal); J15.69 Pneumonia due to other Gram-negative bacteria; I24.9 Acute ischemic heart disease, unspecified; J15.9 Unspecified bacterial pneumonia; J81.1 Chronic pulmonary edema; J44.0 Chronic obstructive pulmonary disease with (acute) lower respiratory infection; I11.0 Hypertensive heart disease with heart failure; I50.9 Heart failure, unspecified; R04.2 Hemoptysis; Z68.43 Body mass index [BMI] 50.0-59.9, adult; J44.1 Chronic obstructive pulmonary disease with (acute) exacerbation; E87.6 Hypokalemia; E11.65 Type 2 diabetes mellitus with hyperglycemia; Z96.653 Presence of artificial knee joint, bilateral; E03.9 Hypothyroidism, unspecified; Z20.822 Contact with and (suspected) exposure to COVID-19; F17.210 Nicotine dependence, cigarettes, uncomplicated; E66.01 Morbid (severe) obesity due to excess calories; I25.10 Atherosclerotic heart disease of native coronary artery without angina pectoris; E78.5 Hyperlipidemia, unspecified; Z91.013 Allergy to seafood; Z85.850 Personal history of malignant neoplasm of thyroid; Z88.0 Allergy status to penicillin; Z79.82 Long term (current) use of aspirin; Z79.899 Other long term (current) drug therapy
CPT/HCPCS: 36415; 71045; 71275; 76705; 80048; 80053; 80061; 80320; 81001; 82962; 83036; 83605; 83690; 83735; 83880; 84100; 84439; 84443; 84481; 84484; 85007; 85025; 85027; 85379; 87040; 87426; 93005; 93306; 93970; 94640; 99291; G0378; J1815; J2185; J2405; J3490

== ENCOUNTER 2025-05-11 22:48 | Emergency (ER) | payer MEDICAID ==
[~2025-05-11] VITALS: Ht 172.7 cm; Wt 154.9 kg
[~2025-05-11 22:48] MED LIST changes: +AMLO1TAB22 PO; -AMLO1TAB23 PO; -Atorvastatin Calcium PO; +BRIM0.2S2 OP; +DOXY1CAP57 PO; +FURO40TA4 PO; -LEVO200T7 PO; +LEVO50TA7 PO; +LEVO750T40 PO; +METF-370 PO; +METH-1214 PO; -METH40TA2 PO; +OMEP1CAP70 PO; +PER60TP TOP; +SERT-206 PO
--- NOTE | 2025-05-11 22:59 | ECG ---
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
--- NOTE | 2025-05-11 23:34 | ED.PDOC ---
History of Present Illness HPI Comments 60 y/o morbidly obese F presents with c/c of shortness of breath and sternal chest tightness. Patient reports ongoing symptoms for the past few days. She endorses on history of CHF and doubling her 40mg Lasix dosage for the past weeks. Denies any nausea, vomiting, cough, congestion, fever, chills, or further associated symptoms. Chief Complaint: Chest Pain Time Seen by MD: 22:50 Primary Care Provider: MIKE Reviewed Notes: Nurses Notes, Medications, Allergies Allergies: Coded Allergies: Shellfish Allergy (Verified Allergy, Mild, 05/24/15) Penicillins (Verified Allergy, Unknown, 05/23/15) Home Meds Active Scripts Levofloxacin Hemihydrate (LEVOFLOXACIN) 750 Mg Tab, 750 MG PO DAILY for 5 Days, #5 TAB Prov:RONALD CHI RESIDENT 11/08/24 Doxycycline Monohydrate (Doxycycline Monohydrate) 100 Mg Cap, 100 MG PO BID for 5 Days, #10 CAP Prov:RONALD CHI RESIDENT 11/08/24 Aspirin (Aspir-Low Ec) 81 Mg Tb, 81 MG PO DAILY, #30 TAB Prov:MACIE SCHAEFER MD 05/26/15 Reported Medications Permethrin (Elimite) 5 % Cre, 1 APPLIC TOP UD for 7 Days, #60 24 Triamcinolone Acetonide (Kenalog) 1 Applic Ap, 1 APPLIC TOP BID for 30 Days, #60 24 Lidocaine (Lidocaine) 5 % Pad, 5 % EX DAILY for 30 Days, #30 24 Albuterol Sulfate (Albuterol Sulfate Hfa) 108 Mcg/Act Aer, 108 MCG IN UD for 16 Days, #18 24 Losartan Potassium (Losartan Potassium) 25 Mg Tab, 1 TAB PO DAILY for 90 Days, #90 24 Sumatriptan Succinate (Sumatriptan Succinate) 100 Mg Tab, 1 TAB PO UD for 30 Days, #9 24 Fenofibrate Micronized (Fenofibrate) 134 Mg Cap, 1 CAP PO DAILY for 90 Days, #90 24 Hydroxyzine Pamoate (Hydroxyzine Pamoate) 25 Mg Cap, 1 CAP PO TID for 40 Days, #120 24 Omeprazole (Omeprazole Dr) 20 Mg Cap, 1 CAP PO DAILY for 90 Days, #90 11/03/24 Mupirocin Calcium (Topical) (MUPIROCIN) 2 % Cre, 2 % EX UD for 11 Days, #22 11/02/24 Brimonidine Tartrate-Timolol M (Combigan) 0.2 Mg/0.5 % Connie, 0.2 MG OP, ML 11/02/24 Levothyroxine Sodium (Levothyroxine Sodium) 50 Mcg Tab, 50 MCG PO QAM for 30 Days, MCG 11/02/24 Sertraline Hcl (Sertraline Hcl) 50 Mg Tab, 50 MG PO DAILY for 30 Days, MG 11/02/24 Metformin Hydrochloride (Metformin Hcl) 500 Mg Tab, 500 MG PO DAILY for 30 Days, MG 11/02/24 Furosemide (Furosemide) 40 Mg Tab, 1 TAB PO DAILY, #30 TAB 5 Refills 11/02/24 Ibuprofen (Ibuprofen) 800 Mg Tab, 1 TAB PO TID for 90 Days, #270 11/02/24 Methadone Hcl (METHADONE HCL TABLET) 10 Mg Tb, 55 MG PO DAILY, TAB 11/02/24 Amlodipine Besylate (Amlodipine Besylate) 5 Mg Tab, 20 MG PO DAILY for 30 Days, MG 11/02/24 Atorvastatin Calcium (Lipitor) 20 Mg Tab, 20 MG PO DAILY, TAB 11/02/24 Gemfibrozil (Gemfibrozil) 600 Mg Tab, 600 MG PO DAILY, TAB 05/23/15 Information Source: Patient Mode of Arrival: Ambulatory Severity: Moderate Timing: Hours Duration: Since onset Prehospital treatment: None Past Medical History PAST MEDICAL HISTORY: Angina, CAD, Cancer, CHF, COPD, High Lipids, HTN, MS Surgical History: Thyroidectomy, Tonsillectomy Family History Family History: No family hx of Cancer, No family hx of DM, No family hx of H eart pranav Social History Smoker: Cigarettes Alcohol: Denies ETOH Use Drugs: Denies Drug Use Lives In: Home All Other Systems: Reviewed and Negative (Comprehensive systems review obtained and negative except for what is stated in the HPI.) Physical Exam General Appearance: No Apparent Distress, Obese HEENT: Normal ENT Inspection, Pharynx Normal, TMs Normal Neck: Full Range of Motion, Non-Tender, Normal, Normal Inspection Respiratory: Chest Non-Tender, Lungs Clear, No Accessory Muscle Use, No Respiratory Distress, Normal Breath Sounds Cardiovascular: No Edema, No JVD, No Murmur, No Gallop, Normal Peripheral Pulses, Regular Rate/Rhythm Breast Exam: Deferred Gastrointestinal: No Organomegaly, Non Tender, No Pulsatile Mass, Normal Bowel Sounds, Soft Genitalia: Deferred Pelvic: Deferred Rectal: Deferred Extremities: Leg edema (bilateral pitting edema), No calf tenderness, Normal capillary refill, Normal inspection, Normal range of motion, Non-tender, No pedal edema Musculoskeletal : Apperance: Normal Neurologic: Alert, banking and finance instructor II-XII nml as Tested, No Motor Deficits, Normal Affect, Normal Mood, No Sensory Deficits Cerebellar Function: Normal Reflexes: Normal Skin: Dry, Normal Color, Warm Lymphatic: No Adenopathy Was a procedure done? Was a procedure done?: No Differential Dx Considerations may include: MS, PE, ACS, URI, PNA, viral syndrome, among others X-Ray, Labs, Meds, VS Vital Signs Date Time Temp Pulse Resp B/P (MAP) Pulse Ox O2 Delivery O2 Flow Rate FiO2 05/11/25 23:08 98.0 62 22 130/57 (81) 96 98.0 05/11/25 22:58 64 Lab Test 05/12/25 00:10 05/11/25 23:03 Range/Units Troponin I High Sensitivity 8 9 </=34 ng/L White Blood Count 8.3 4.4-10.8 10^3/uL Red Blood Count 4.40 4.0-5.20 10^6/uL Hemoglobin 14.1 12.2-16.2 g/dL Hematocrit 40.1 36.0-46.0 % Mean Corpuscular Volume 91.1 80.0-100.0 fL Mean Corpuscular Hemoglobin 32.0 28.0-32.0 pg Mean Corpuscular Hemoglobin Concent 35.2 32.0-36.0 g/dL Red Cell Distribution Width 16.4 H 11.8-14.3 % Platelet Count 233 140-450 10^3/uL Mean Platelet Volume 9.5 6.9-10.8 fL Neutrophils (%) (Auto) 60.7 37.0-80.0 % Lymphocytes (%) (Auto) 26.1 10.0-50.0 % Monocytes (%) (Auto) 8.5 0.0-12.0 % Eosinophils (%) (Auto) 3.7 0.0-7.0 % Basophils (%) (Auto) 1.0 0.0-2.0 % Neutrophils # (Auto) 5.1 1.6-8.6 10 ^3/uL Lymphocytes # (Auto) 2.2 0.4-5.4 10 ^3/uL Monocytes # (Auto) 0.7 0-1.3 10 ^3/uL Eosinophils # (Auto) 0.3 0-0.8 10 ^3/uL Basophils # (Auto) 0.1 0-0.2 10 ^3/uL Nucleated Red Blood Cells 0.5 % Sodium Level 139 136-145 mmol/L Potassium Level 3.7 3.5-5.1 mmol/L Chloride Level 99 98-107 mmol/L Carbon Dioxide Level 28 20-31 mmol/L Anion Gap 12 5-15 Blood Urea Nitrogen 15 9-23 mg/dL Creatinine 0.93 0.550-1.02 mg/dL Glomerular Filtration Rate Calc 70 >90 mL/min BUN/Creatinine Ratio 16.1 10.0-20.0 Serum Glucose 190 H 74-106 mg/dL Calcium Level 9.0 8.7-10.4 mg/dL B-Type Natriuretic Peptide 61.89 0-100 pg/mL X-Ray, Labs, Meds, VS Comment Imaging: X-rays and CT scans were reviewed and interpreted by this provider, imaging shows no fractures and no pathological disease. Pending radiology review. Laboratory: Labs reviewed and interpreted by this provider. No significant abnormalities noted. Patient has prior medical visits reviewed. Med reconciliation performed Vital signs reviewed Troponins negative, BNP negative, chest x-ray negative Patient advised he will need to follow up with PCP next available appointment Patient is hemodynamically stable No concerns of CHF overload or MS or respiratory distress Time of 1ST Reevaluation: 23:10 Reevaluation 1ST: Unchanged Patient Education/Counseling: Diagnosis, Treatment, Need For Follow Up (Follow up with PCP next available appointment. Return to the emergency room in his symptoms worsened.) Family Education/Counseling: No Family Present SEPSIS Sepsis Screen Date sepsis recognized/suspect: May 11, 2025 Time Sepsis recognized/suspect: 2299 Recent Procedure: No On Antibiotic Therapy: No Respiratory Rate >20: Yes Heart Rate >90: No Temp<36 C (96.8 F) or >38.3 C: No SBP <90 or MAP <65 mmHG: No New Acute Mental Status Change: No Is the patient on CPAP, BIPAP,: No Physician Orders Troponin-I Hs (05/12/25 01:55) Electrocardigram (05/11/25 23:55) Electrocardigram (05/12/25 01:55) Urinalysis (05/11/25 23:27) Chest Xray 1 View (05/11/25 23:27) Vital Signs Date Time Temp Pulse Resp B/P (MAP) Pulse Ox O2 Delivery O2 Flow Rate FiO2 05/11/25 23:08 98.0 62 22 130/57 (81) 96 98.0 05/11/25 22:58 64 Laboratory Tests Test 05/11/25 23:03 White Blood Count 8.3 10^3/uL (4.4-10.8) Departure 1 Departure Time of Disposition: 01:23 Impression: Primary Impression: Generalized weakness Additional Impression: Shortness of breath Disposition: HOME / SELF CARE / HOMELESS Condition: Fair Discharged With: Self Critical Care Note Critical Care Time?: No Stability Stability form required: No Heart Score Heart Score: Heart Score Response (Comments) Value History N/A 0 EKG N/A 0 Age N/A 0 Risk Factors N/A 0 Troponin N/A 0 Total 0 I personally scribed for MORIAH FERNANDEZP ([email or web address]) on 05/11/25 at 23:34. Electronically submitted by Bora Guerrero ([email or web address]). I personally scribed for MORIAH FERNANDEZ MACHINE LACER ([email or web address]) on 05/11/25 at 23:41. Electronically submitted by Bora Guerrero ([email or web address]). MORIAH FERNANDEZ MACHINE LACER May 11, 2025 23:34
[2025-05-12 00:04] LABS: Basophils # (auto) 0.1 10 ^3/uL (0-0.2); Chloride 99 mmol/L (98-107); Eosinophils # (auto) 0.3 10 ^3/uL (0-0.8); Eosinophils % (auto) 3.7 % (0.0-7.0); Hematocrit 40.1 % (36.0-46.0); Hemoglobin 14.1 g/dL (12.2-16.2); Lymphocytes # (auto) 2.2 10 ^3/uL (0.4-5.4); Lymphocytes % (auto) 26.1 % (10.0-50.0); Mean Corpuscular Hgb Conc. 35.2 g/dL (32.0-36.0); Mean Corpuscular Volume 91.1 fL (80.0-100.0); Monocytes # (auto) 0.7 10 ^3/uL (0-1.3); Monocytes % (auto) 8.5 % (0.0-12.0); Neutrophils # (auto) 5.1 10 ^3/uL (1.6-8.6); Neutrophils % (auto) 60.7 % (37.0-80.0); Nucleated Red Blood Cells % 0.5 %; Platelet Count (auto) 233 10^3/uL (140-450); Potassium 3.7 mmol/L (3.5-5.1); Red Cell Distribution Width 16.4 % (11.8-14.3); Sodium 139 mmol/L (136-145); White Blood Cell 8.3 10^3/uL (4.4-10.8)
[2025-05-12 00:05] LABS: Anion Gap 12 (5-15); Carbon Dioxide 28 mmol/L (20-31)
[2025-05-12 00:10] LABS: BUN/Creatinine Ratio 16.1 (10.0-20.0); Blood Urea Nitrogen 15 mg/dL (9-23)
--- NOTE | 2025-05-12 00:11 | DVH ---
CHEST RADIOGRAPH Indication: cp Technique: Single frontal view of the chest was obtained COMPARISON: XY CHEST XRAY 1 VIEW on DOS: 11/07/24, XY CHEST PORTABLE on DOS: 11/01/24 FINDINGS: Lines and Tubes: None Lungs: Clear Pleura: No effusion. No pneumothorax. Cardiomediastinal contours: Unremarkable Bones: Unremarkable IMPRESSION: 1. No acute disease.
[2025-05-12 00:12] LABS: Glucose 190 mg/dL (74-106)
[2025-05-12 03:25] VITALS: BP 177/80; PULSE 58; RESP 20; TEMP 97.6; O2SAT 0
== END 2025-05-12 03:25 | disposition home or self-care (01) ==
LOC: ER 22:55
DX: R06.02 Shortness of breath (principal); R53.1 Weakness; F17.210 Nicotine dependence, cigarettes, uncomplicated; I11.0 Hypertensive heart disease with heart failure; I50.9 Heart failure, unspecified; I25.10 Atherosclerotic heart disease of native coronary artery without angina pectoris; Z79.82 Long term (current) use of aspirin; E66.01 Morbid (severe) obesity due to excess calories; E78.5 Hyperlipidemia, unspecified; I21.9 Acute myocardial infarction, unspecified; J44.9 Chronic obstructive pulmonary disease, unspecified; Z79.1 Long term (current) use of non-steroidal anti-inflammatories (NSAID); Z79.84 Long term (current) use of oral hypoglycemic drugs; Z79.890 Hormone replacement therapy; Z79.899 Other long term (current) drug therapy; Z88.0 Allergy status to penicillin; Z90.89 Acquired absence of other organs; Z68.43 Body mass index [BMI] 50.0-59.9, adult
CPT/HCPCS: 36415; 71045; 80048; 83880; 84484; 85025; 93005